=== PATIENT | female | born 1965 | race African-American/Black ===

== ENCOUNTER 2017-08-28 13:07 | Emergency (ER) | payer MEDICARE, OTHER ==
[2017-08-28 13:17] VITALS: BP 136/91; PULSE 90; RESP 18; TEMP 98.1
--- NOTE | 2017-08-28 14:29 | ED ---
General Adult HPI - General Chief complaint: ENT Stated complaint: right ear clogged Time Seen by Provider: 08/28/17 13:26 Source: patient, RN notes reviewed Mode of arrival: ambulatory Limitations: no limitations - History of Present Illness Initial comments: Patient 51-year-old female who presents emergency room today with a chief complaint of cerumen impaction to the right ear. She states she's had this problem multiple times in the past. She states is been bothering her this past week and she has decreased hearing out of the right ear and some discomfort. Patient states she's had to have it irrigated before. She denies any other points her symptoms. Patient denies any recent fever, chills, shortness of breath, chest pain, back pain, abdominal pain, headaches or visual changes, or any other complaints. - Related Data Home Medications Medication Instructions Recorded Confirmed oxyCODONE-APAP 5-325MG [Percocet 1 tab PO Q6HR PRN 09/21/14 08/28/17 5-325] ALPRAZolam [Xanax] 0.25 mg PO BID PRN 08/28/17 08/28/17 Losartan/Hydrochlorothiazide 1 tab PO DAILY 08/28/17 08/28/17 [Losartan-Hctz 100-12.5 mg Tab] hydrOXYzine HCL [Atarax] 25 mg PO BID PRN 08/28/17 08/28/17 Allergies Allergy/AdvReac Type Severity Reaction Status Date / Time hydrocodone bitartrate Allergy Itching Verified 08/28/17 14:03 [From Vicodin] ibuprofen [From Motrin] Allergy Swelling Verified 08/28/17 14:03 Review of Systems ROS Statement: Those systems with pertinent positive or pertinent negative responses have been documented in the HPI. ROS Other: All systems not noted in ROS Statement are negative. Past Medical History Past Medical History: Hyperlipidemia, Hypertension History of Any Multi-Drug Resistant Organisms: None Reported Past Surgical History: Hysterectomy Additional Past Surgical History / Comment(s): partical hysterectomy Past Psychological History: Anxiety Smoking Status: Never smoker Past Alcohol Use History: None Reported Past Drug Use History: None Reported General Exam - General Exam Comments Initial Comments: General: The patient is awake and alert, in no distress, and does not appear acutely ill. Eye: Pupils are equal, round and reactive to light, extra-ocular movements are intact. No nystagmus. There is normal conjunctiva bilaterally. No signs of icterus. Ears, nose, mouth and throat: There are moist mucous membranes and no oral lesions. Patient does have cerumen impaction on the right. Neck: The neck is supple, there is no tenderness or JVD. Musculoskeletal: Normal ROM, no tenderness. Strength 5/5. Sensation intact. Pulses equal bilaterally 2+. Neurological: A&O x 3. CN II-XII intact, There are no obvious motor or sensory deficits. Coordination appears grossly intact. Speech is normal. Skin: Skin is warm and dry and no rashes or lesions are noted. Psychiatric: Cooperative, appropriate mood & affect, normal judgment. Limitations: no limitations Course Vital Signs 08/28/17 13:14 Temperature 98.1 F Pulse Rate 90 Respiratory 18 Rate Blood Pressure 136/91 O2 Sat by Pulse 100 Oximetry Medical Decision Making - Medical Decision Making Patient's year was irrigated by nursing staff. The emergency room. A large chunk of cerumen was removed and patient is feeling much better. TMs clear. Patient will be discharged home. Disposition Clinical Impression: Cerumen impaction Disposition: HOME SELF-CARE Condition: Good Instructions: Cerumen Impaction (ED) Additional Instructions: Please return to emergency room if the symptoms increase or worsen or for any other concerns. Referrals: Ludin Hennessy MD [Primary Care Provider] - 1-2 days Time of Disposition: 14:28
== END 2017-08-28 14:36 | disposition home or self-care (01) ==
LOC: EC 13:07
DX: H61.21 Impacted cerumen, right ear (principal); I10 Essential (primary) hypertension; Z79.899 Other long term (current) drug therapy; Z88.5 Allergy status to narcotic agent; Z88.6 Allergy status to analgesic agent
CPT/HCPCS: 69209; 99282

== ENCOUNTER → 2017-09-10 | Outpatient (CLI) | payer MEDICARE, OTHER ==
[2017-09-10 07:47] LABS: HCT 31.7 % (34.0-46.0); HGB 11.1 gm/dL (11.4-16.0); MCH 30.3 pg (25.0-35.0); MCHC 35.1 g/dL (31.0-37.0); MCV 86.2 fL (80.0-100.0); Mean Platelet Volume 7.1; Platelet Count 452 k/uL (150-450); RBC 3.68 m/uL (3.80-5.40); RDW 12.4 % (11.5-15.5); WBC 3.6 k/uL (3.8-10.6)
[2017-09-10 07:57] LABS: ALT 26 U/L (9-52); AST 21 U/L (14-36); Albumin 4.3 g/dL (3.5-5.0); Alkaline Phosphatase 77 U/L (38-126); Anion Gap 11 mmol/L; Blood Urea Nitrogen 12 mg/dL (7-17); Calcium 10.3 mg/dL (8.4-10.2); Carbon Dioxide 30 mmol/L (22-30); Chloride 102 mmol/L (98-107); Cholesterol 283 mg/dL (<200); Glucose 113 mg/dL (74-99); HDL Cholesterol 43 mg/dL (40-60); LDL Cholesterol,Calculated 218 mg/dL (0-99); Potassium 3.9 mmol/L (3.5-5.1); Sodium 143 mmol/L (137-145); Total Bilirubin 0.7 mg/dL (0.2-1.3); Total Protein 7.9 g/dL (6.3-8.2); Triglycerides 108 mg/dL (<150)
[2017-09-10 08:07] LABS: T4, Free (Free Thyroxine) 0.88 ng/dL (0.78-2.19)
== END | disposition home or self-care (01) ==
LOC: LABWHC1 07:05
PROVIDERS: ATTEND Internal Medicine
DX: Z00.01 Encounter for general adult medical examination with abnormal findings (principal); I11.9 Hypertensive heart disease without heart failure; E78.2 Mixed hyperlipidemia; K21.0 Gastro-esophageal reflux disease with esophagitis
CPT/HCPCS: 36415; 80053; 80061; 84439; 84443; 85027

== ENCOUNTER → 2018-01-01 | Outpatient (CLI) | payer MEDICARE, OTHER ==
--- NOTE | 2018-01-01 14:07 | MM ---
Reason for exam: follow-up at short interval from prior study. Last mammogram was performed 7 months ago. History: Patient is postmenopausal. Family history of breast cancer in maternal aunt at age 30. Physical Findings: Nurse did not find any significant physical abnormalities on exam. MG 3D Diag Mammo W/Cad LT CC and MLO view(s) were taken of the left breast. Prior study comparison: May 20, 2017, bilateral MG 3d screening mammo w/cad. September 14, 2015, right breast MG 3d diag mammo w/cad RT. There are scattered fibroglandular densities. These results were verbally communicated with the patient and result sheet given to the patient on 01/01/18. ASSESSMENT: Benign, BI-RAD 2 RECOMMENDATION: Return to routine screening mammogram schedule for both breasts.
== END | disposition home or self-care (01) ==
LOC: RADMAMWWP 12:51
PROVIDERS: ATTEND Internal Medicine
DX: R92.8 Other abnormal and inconclusive findings on diagnostic imaging of breast (principal)
CPT/HCPCS: 77065; G0279; 77061

== ENCOUNTER → 2018-03-07 | Outpatient (CLI) | payer MEDICARE, OTHER ==
[2018-03-07 09:05] LABS: ALT 36 U/L (9-52); AST 29 U/L (14-36); Anion Gap 9 mmol/L; Blood Urea Nitrogen 12 mg/dL (7-17); Calcium 9.7 mg/dL (8.4-10.2); Carbon Dioxide 32 mmol/L (22-30); Chloride 102 mmol/L (98-107); Cholesterol 277 mg/dL (<200); Creatine Kinase 145 U/L (30-135); Glucose 100 mg/dL (74-99); HDL Cholesterol 45 mg/dL (40-60); LDL Cholesterol,Calculated 201 mg/dL (0-99); Potassium 3.9 mmol/L (3.5-5.1); Sodium 143 mmol/L (137-145); Triglycerides 153 mg/dL (<150)
== END | disposition home or self-care (01) ==
LOC: LABWHC1 06:54
PROVIDERS: ATTEND Internal Medicine
DX: I10 Essential (primary) hypertension (principal); E78.2 Mixed hyperlipidemia
CPT/HCPCS: 36415; 80048; 80061; 82550; 84450; 84460

== ENCOUNTER → 2018-07-25 | Outpatient (CLI) | payer MEDICARE, OTHER ==
--- NOTE | 2018-07-25 12:04 | XR ---
Lumbar spine HISTORY: Back pain 3 views of the lumbar spine Correlation to prior exam June 24, 2012 There is no significant interval change. Multilevel spondylosis is present. Lumbar vertebral bodies s how preserved height and alignment. Bone mineralization is maintained. Sclerosis present in the poste rior elements of the lower lumbar spine. Loss of disc height present L5-S1. There are vascular calcif ications noted incidentally. IMPRESSION: Degenerative disc disease. Facet arthropathy.
--- NOTE | 2018-07-25 12:17 | XR ---
Thoracic spine HISTORY: Back pain 3 views of the thoracic spine There is a spinal curvature convex left centered at the lower thoracic spine. Thoracic vertebral bodi es show preserved height and bone mineralization. There is multilevel spondylosis present. No paraspi nal mass. Disc spaces are maintained with exception of upper levels show some mild loss of height. IMPRESSION: Degenerative disc disease, spinal curvature could be positional. Correlate.
== END | disposition home or self-care (01) ==
LOC: RADXRMAIN 09:35
PROVIDERS: ATTEND Internal Medicine
DX: M51.36 Other intervertebral disc degeneration, lumbar region (principal); M51.34 Other intervertebral disc degeneration, thoracic region; M46.96 Unspecified inflammatory spondylopathy, lumbar region; M19.90 Unspecified osteoarthritis, unspecified site
CPT/HCPCS: 72072; 72100

== ENCOUNTER → 2018-10-16 | Outpatient (CLI) | payer MEDICARE, OTHER ==
--- NOTE | 2018-10-16 11:19 | XR ---
EXAMINATION TYPE: XR chest 2V DATE OF EXAM: 10/16/2018 COMPARISON: 02/24/2013 TECHNIQUE: PA and lateral views submitted. HISTORY: Cough and cold symptoms FINDINGS: The lungs are clear and there is no pneumothorax, pleural effusion, or focal pneumonia. IMPRESSION: 1. No acute process.
--- NOTE | 2018-10-16 11:31 | XR ---
EXAM TYPE: LUMBAR SPINE X RAY SERIES COMPARISON: 07/25/2018 HISTORY: Pain TECHNIQUE: 4 views are submitted. FINDINGS: Alignment is anatomic. The pedicles are intact. The transverse processes are intact. There is no s pondylolysis or spondylolisthesis. Hypertrophic and degenerative changes of the vertebral column. Th ere is loss of disc space L3-S1. There is facet arthropathy. IMPRESSION: 1. Multilevel degenerative disc disease and facet arthropathy.
== END | disposition home or self-care (01) ==
LOC: RADXRMAIN 10:12
PROVIDERS: ATTEND Internal Medicine
DX: M51.36 Other intervertebral disc degeneration, lumbar region (principal); M46.96 Unspecified inflammatory spondylopathy, lumbar region; R05 Cough
CPT/HCPCS: 71046; 72110

== ENCOUNTER → 2019-01-02 | Outpatient (CLI) | payer MEDICARE, OTHER ==
--- NOTE | 2019-01-06 15:21 | MM ---
Reason for exam: screening (asymptomatic). Last mammogram was performed 1 year ago. History: Patient is postmenopausal. Family history of breast cancer in maternal aunt at age 30. MG 3D Screening Mammo W/Cad Bilateral CC and MLO view(s) were taken. Prior study comparison: January 01, 2018, left breast MG 3d diag mammo w/cad LT. May 20, 2017, bilateral MG 3d screening mammo w/cad. There are scattered fibroglandular densities. No significant new finding when compared with prior studies. ASSESSMENT: Negative, BI-RAD 1 RECOMMENDATION: Routine screening mammogram of both breasts in 1 year.
== END | disposition home or self-care (01) ==
LOC: RADMAMWWP 06:58
PROVIDERS: ATTEND Internal Medicine
DX: Z12.31 Encounter for screening mammogram for malignant neoplasm of breast (principal)
CPT/HCPCS: 77063; 77067

== ENCOUNTER → 2022-11-27 | Outpatient (CLI) | payer MEDICARE, OTHER ==
--- NOTE | 2022-11-27 20:23 | US ---
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 Left Kidney: wnl, no lesions seen. No hydronephrosis. Bladder: wnl Bilateral Jets seen: yes IMPRESSION: 1. Mild right-sided pelvicaliectasis could be transient or cardiac represent early hydronephrosis. Co nsider short interval follow-up to reassess. 2. No focal kidney lesion identified on either side by ultrasound.
== END | disposition home or self-care (01) ==
LOC: RADUSWWP 14:48
PROVIDERS: ATTEND Urology
DX: D41.02 Neoplasm of uncertain behavior of left kidney (principal); N28.89 Other specified disorders of kidney and ureter
CPT/HCPCS: 76770

== ENCOUNTER 2023-08-19 17:32 | Inpatient (IN) | payer MEDICARE, OTHER ==
--- NOTE | 2023-08-19 17:45 | ED ---
General Adult HPI - General Source: patient, RN notes reviewed Mode of arrival: wheelchair Limitations: physical limitation <Izabela Mancia - Last Filed: 08/19/23 17:44> <Berry Alvarenga - Last Filed: 08/19/23 20:45> - General Stated complaint: Needs bloodwork Time Seen by Provider: 08/19/23 17:44 - History of Present Illness Initial comments: Quick note: Patient is a 57-year-old female presented to ER with chief complaint of myalgias and tiredness. Patient also was complaining of hematuria denies blood thinner use. She states that been going on for a week. Denies any abdominal pain. (Izabela Mancia) Dictation was produced using [employer] dictation software. please excuse any grammatical, word or spelling errors. Chief Complaint: 57-year-old female presents with 1 to 2 weeks of cough fever myalgias History of Present Illness: Patient is a 57-year-old female she has past medical history of hypertension. Patient presents to the emergency department with daughters. For the last week she has been having bodyaches shortness of breath and cough. Denies any obvious sick contacts. She has past medical history of hypertension. Denies any chest pain. She does complain of some mild dyspnea. The ROS documented in this emergency department record has been reviewed and confirmed by me. Those systems with pertinent positive or negative responses have been documented in the HPI. All other systems are other negative and/or noncontributory. (Berry Alvarenga) - Related Data Home Medications Medication Instructions Recorded Confirmed oxyCODONE-APAP 5-325MG [Percocet 1 tab PO Q6HR PRN 09/21/14 08/28/17 5-325] ALPRAZolam [Xanax] 0.25 mg PO BID PRN 08/28/17 08/28/17 Losartan/Hydrochlorothiazide 1 tab PO DAILY 08/28/17 08/28/17 [Losartan-Hctz 100-12.5 mg Tab] hydrOXYzine HCL [Atarax] 25 mg PO BID PRN 08/28/17 08/28/17 Allergies Allergy/AdvReac Type Severity Reaction Status Date / Time hydrocodone bitartrate Allergy Itching Verified 08/28/17 14:03 [From Vicodin] ibuprofen [From Motrin] Allergy Swelling Verified 08/28/17 14:03 Review of Systems ROS Other: All systems not noted in ROS Statement are negative. <Izabela Mancia - Last Filed: 08/19/23 17:44> ROS Other: All systems not noted in ROS Statement are negative. <Berry Alvarenga - Last Filed: 08/19/23 20:45> ROS Statement: Those systems with pertinent positive or pertinent negative responses have been documented in the HPI. Past Medical History Past Medical History: Hyperlipidemia, Hypertension History of Any Multi-Drug Resistant Organisms: None Reported Past Surgical History: Hysterectomy Additional Past Surgical History / Comment(s): partical hysterectomy Past Psychological History: Anxiety Past Alcohol Use History: None Reported Past Drug Use History: None Reported <Izabela Mancia - Last Filed: 08/19/23 17:44> General Exam <Izabela Mancia - Last Filed: 08/19/23 17:44> <Berry Alvarenga - Last Filed: 08/19/23 20:45> - General Exam Comments Initial Comments: Visual Physical Exam Vital signs reviewed General: Well-appearing, nontoxic, no acute distress. Head: Normocephalic, atraumatic Eyes: PERRLA, EOMI ENT: Airway patent Chest: Nonlabored breathing Skin: No visual rash, normal skin tone Neuro: Alert and oriented 3 Musculoskeletal: No gross abnormalities (Izabela Mancia) PHYSICAL EXAM: General Impression: Alert and oriented x3, not in acute distress malaised HEENT: Normocephalic atraumatic, extra-ocular movements intact, pupils equal and reactive to light bilaterally, mucous membranes moist. Cardiovascular: Heart regular rate and rhythm Chest: Able to complete full sentences, no retractions, no tachypnea, crackles in the right posterior lung base Abdomen: abdomen soft, non-tender, non-distended, no organomegaly Musculoskeletal: Pulses present and equal in all extremities, no peripheral edema Motor: no focal deficits noted Neurological: CN II-XII grossly intact, no focal motor or sensory deficits noted Skin: Intact with no visualized rashes Psych: Normal affect and mood (Berry Alvarenga) Course Vital Signs 08/19/23 17:39 Temperature 102.4 F H Pulse Rate 116 H Respiratory 20 Rate Blood Pressure 146/76 O2 Sat by Pulse 96 Oximetry Procedures - Sepsis Sepsis Focused Exam #1 Time Sepsis Criteria Met: 20:41 Sepsis Focused Exam Date: 08/19/23 Sepsis Focused Exam Time: 20:42 Sepsis Focused Exam Complete: Yes Vital Signs & RN Notes Reviewed: Yes Capillary Refill: < 2 Seconds: Fingers, Toes Peripheral Pulses: Normal: Radial (R), Radial (L), Posterior Tibialis (R), Posterior Tibialis (L), Dorsalis Pedis (R), Dorsalis Pedis (L) Skin Color: Normal for Patient Respiratory Exam: rales Cardiovascular Exam: tachycardia <Berry Alvarenga - Last Filed: 08/19/23 20:45> Medical Decision Making <Izabela Mancia - Last Filed: 08/19/23 17:44> - Lab Data Result diagrams: 08/19/23 18:02 08/19/23 18:02 <Berry Alvarenga - Last Filed: 08/19/23 20:45> - Medical Decision Making I performed the quick note portion of this chart. Electronically signed by Izabela Mancia PA-C (Izabela Mancia) Was pt. sent in by a medical professional or institution (ASHER Marcus, POLYMER MATERIALS CONSULTANT, urgent care, hospital, or snf...) When possible be specific @ -No Did you speak to anyone other than the patient for history (EMS, parent, family, police, friend...)? What history was obtained from this source @ -Daughter at the bedside as discussed above Did you review nursing and triage notes (agree or disagree)? Why? @ -I reviewed and agree with nursing and triage notes Were old charts reviewed (outside hosp., previous admission, EMS record, old EKG, old radiological studies, urgent care reports/EKG's, snf records)? Report findings @ -No old charts were reviewed Differential Diagnosis (chest pain, altered mental status, abdominal pain women, abdominal pain men, vaginal bleeding, musculoskeletal, weakness, fever, dyspnea, syncope, headache, dizziness, GI bleed, back pain, seizure, CVA, palpatations, mental health)? @ -Differential Weakness: Hypoglycemia, shock, sepsis, hyponatremia, anemia, infection, NM, ETOH, adverse medicine reaction, overdose, stroke, this is not meant to be an all-inclusive list. EKG interpreted by me (3pts min.). @ -None done X-rays interpreted by me (1pt min.). @ -Right lobar pneumonia CT interpreted by me (1pt min.). @ -None done U/S interpreted by me (1pt. min.). @ -None done What testing was considered but not performed or refused? (CT, X-rays, U/S, labs)? Why? @ -None What meds were considered but not given or refused? Why? @ -None Did you discuss the management of the patient with other professionals (professionals i.e. DrTeresa, PA, POLYMER MATERIALS CONSULTANT, lab, RT, psych nurse, social media director, retail client solutions consultant, teacher, ict customer support officer, case worker)? Give summary @ -Case discussed with hospitalist for admission Was smoking cessation discussed for >3mins.? @ -No Was critical care preformed (if so, how long)? @ -No Were there social determinants of health that impacted care today? How? (Homelessness, low income, unemployed, alcoholism, drug addiction, transportation, low edu. Level, literacy, decrease access to med. care, skilled nursing, rehab)? @ -No Was there de-escalation of care discussed even if they declined (Discuss DNR or withdrawal of care, Hospice)? DNR status @ -No What co-morbidities impacted this encounter? (DM, HTN, Smoking, COPD, CAD, Cancer, CVA, ARF, Chemo, Hep., AIDS, mental health diagnosis, sleep apnea, mo rbid obesity)? @ -None Was patient admitted / discharged? Hospital course, mention meds given and r oute, prescriptions, significant lab abnormalities, going to OR and other pertinent info. @ -57-year-old female presents emergency department for lethargy weakness fever and constitutional symptoms. Vital signs upon arrival shows temperature 102.4 heart rate of 116. Patient looks malaise at the bedside. Laboratory evaluation shows leukocytosis of 19.6. Sodium 129. Urinalysis negative. Viral testing negative. Chest x-ray shows right lower lobar pneumonia. Patient started antibiotics will be admitted consultation of pulmonology. Undiagnosed new problem with uncertain prognosis? @ -No Drug Therapy requiring intensive monitoring for toxicity (Heparin, Nitro, Insulin, Cardizem)? @ -No Were any procedures done? @ -No Diagnosis/symptom? Acute, or Chronic, or Acute on Chronic? Uncomplicated (without systemic symptoms) or Complicated (systemic symptoms)? @ -Pneumonia Side effects of treatment? @ -No Exacerbation, Progression, or Severe Exacerbation? @ -No Poses a threat to life or bodily function? How? (Chest pain, USA, NM, pneumonia, PE, COPD, DKA, ARF, appy, cholecystitis, CVA, Diverticulitis, Homicidal, Suicidal, threat to staff... and all critical care pts) @ -yes (Berry Alvarenga) - Lab Data Lab Results 08/19/23 08/19/23 08/19/23 Range/Units 17:43 17:50 17:55 WBC (3.8-10.6) k/uL RBC (3.80-5.40) m/uL Hgb (11.4-16.0) gm/dL Hct (34.0-46.0) % MCV (80.0-100.0) fL MCH (25.0-35.0) pg MCHC (31.0-37.0) g/dL RDW (11.5-15.5) % Plt Count (150-450) k/uL MPV Neutrophils % % Lymphocytes % % Monocytes % % Eosinophils % % Basophils % % Neutrophils # (1.3-7.7) k/uL Lymphocytes # (1.0-4.8) k/uL Monocytes # (0-1.0) k/uL Eosinophils # (0-0.7) k/uL Basophils # (0-0.2) k/uL Sodium (137-145) mmol/L Potassium (3.5-5.1) mmol/L Chloride (98-107) mmol/L Carbon Dioxide (22-30) mmol/L Anion Gap mmol/L BUN (7-17) mg/dL Creatinine (0.52-1.04) mg/dL Est GFR (CKD-EPI)AfAm (>60 ml/min/1.73 sqM) Est GFR (CKD-EPI)NonAf (>60 ml/min/1.73 sqM) Glucose (74-99) mg/dL Calcium (8.4-10.2) mg/dL Total Bilirubin (0.2-1.3) mg/dL AST (14-36) U/L ALT (4-34) U/L Alkaline Phosphatase (38-126) U/L Total Protein (6.3-8.2) g/dL Albumin (3.5-5.0) g/dL Urine Color Dark Yellow Urine Appearance Turbid H (Clear) Urine pH 6.0 (5.0-8.0) Ur Specific [place] 1.016 (1.001-1.035) Urine Protein 3+ H (Negative) Urine Glucose (UA) Negative (Negative) Urine Ketones Negative (Negative) Urine Blood Moderate H (Negative) Urine Nitrite Negative (Negative) Urine Bilirubin 2+ H (Negative) Urine Urobilinogen 4.0 (<2.0) mg/dL Ur Leukocyte Esterase Negative (Negative) Urine RBC 9 H (0-5) /hpf Urine WBC 13 H (0-5) /hpf Ur Squamous Epith Cells 16 H (0-4) /hpf Urine Bacteria Occasional H (None) /hpf Urine Mucus Rare H (None) /hpf Influenza Type A (PCR) (Not Detectd) Influenza Type B (PCR) (Not Detectd) RSV (PCR) (Not Detectd) SARS-CoV-2 (PCR) (Not Detectd) Blood Type A Positive Blood Type Confirm A Positive Blood Type Recheck No Previous Record Bld Type Recheck Status CABO Indicated Antibody Screen NEGATIVE Spec Expiration Date 08/22/2023234908/19/23 08/19/23 08/19/23 Range/Units 18:02 18:02 18:02 WBC 19.6 H (3.8-10.6) k/uL RBC 3.73 L (3.80-5.40) m/uL Hgb 11.0 L (11.4-16.0) gm/dL Hct 31.7 L (34.0-46.0) % MCV 84.9 (80.0-100.0) fL MCH 29.6 (25.0-35.0) pg MCHC 34.8 (31.0-37.0) g/dL RDW 13.7 (11.5-15.5) % Plt Count 359 (150-450) k/uL MPV 7.9 Neutrophils % 91 % Lymphocytes % 5 % Monocytes % 4 % Eosinophils % 0 % Basophils % 0 % Neutrophils # 17.8 H (1.3-7.7) k/uL Lymphocytes # 0.9 L (1.0-4.8) k/uL Monocytes # 0.7 (0-1.0) k/uL Eosinophils # 0.0 (0-0.7) k/uL Basophils # 0.0 (0-0.2) k/uL Sodium 129 L (137-145) mmol/L Potassium 3.3 L (3.5-5.1) mmol/L Chloride 94 L (98-107) mmol/L Carbon Dioxide 21 L (22-30) mmol/L Anion Gap 14 mmol/L BUN 21 H (7-17) mg/dL Creatinine 1.79 H (0.52-1.04) mg/dL Est GFR (CKD-EPI)AfAm 36 (>60 ml/min/1.73 sqM) Est GFR (CKD-EPI)NonAf 31 (>60 ml/min/1.73 sqM) Glucose 162 H (74-99) mg/dL Calcium 9.8 (8.4-10.2) mg/dL Total Bilirubin 5.2 H (0.2-1.3) mg/dL AST 538 H (14-36) U/L ALT 400 H (4-34) U/L Alkaline Phosphatase 212 H (38-126) U/L Total Protein 8.8 H (6.3-8.2) g/dL Albumin 4.0 (3.5-5.0) g/dL Urine Color Urine Appearance (Clear) Urine pH (5.0-8.0) Ur Specific [place] (1.001-1.035) Urine Protein (Negative) Urine Glucose (UA) (Negative) Urine Ketones (Negative) Urine Blood (Negative) Urine Nitrite (Negative) Urine Bilirubin (Negative) Urine Urobilinogen (<2.0) mg/dL Ur Leukocyte Esterase (Negative) Urine RBC (0-5) /hpf Urine WBC (0-5) /hpf Ur Squamous Epith Cells (0-4) /hpf Urine Bacteria (None) /hpf Urine Mucus (None) /hpf Influenza Type A (PCR) Not Detected (Not Detectd) Influenza Type B (PCR) Not Detected (Not Detectd) RSV (PCR) Not Detected (Not Detectd) SARS-CoV-2 (PCR) Not Detected (Not Detectd) Blood Type Blood Type Confirm Blood Type Recheck Bld Type Recheck Status Antibody Screen Spec Expiration Date Disposition <Izabela Mancia - Last Filed: 08/19/23 17:44> Decision Time: 20:45 <Berry Alvarenga - Last Filed: 08/19/23 20:45> Clinical Impression: Pneumonia Disposition: ADMITTED IP TO THIS HOSP Condition: Fair Referrals: Tarsha Graf MD [Primary Care Provider] - 1-2 days
[2023-08-19 18:48] LABS: Basophils % (A) 0 %; Eosinophils % (A) 0 %; HCT 31.7 % (34.0-46.0); Lymphocytes # (A) 0.9 k/uL (1.0-4.8); Lymphocytes % (A) 5 %; MCH 29.6 pg (25.0-35.0); MCHC 34.8 g/dL (31.0-37.0); MCV 84.9 fL (80.0-100.0); Mean Platelet Volume 7.9; Monocytes # (A) 0.7 k/uL (0-1.0); Monocytes % (A) 4 %; Neutrophils # (A) 17.8 k/uL (1.3-7.7); Neutrophils % (A) 91 %; Platelet Count 359 k/uL (150-450); RBC 3.73 m/uL (3.80-5.40); RDW 13.7 % (11.5-15.5); WBC 19.6 k/uL (3.8-10.6)
[2023-08-19] MEDS: ACETAMINOPHEN TAB 325 MG TAB PO STA (18:53)
--- NOTE | 2023-08-19 18:59 | XR ---
EXAMINATION TYPE: XR chest 2V DATE OF EXAM: 08/19/2023 6:29 PM CLINICAL INDICATION:Female, 57 years old with history of fever; [facility] COMPARISON: Chest radiographs from 10/16/2018. TECHNIQUE: XR chest 2V Frontal and lateral views of the chest. FINDINGS: Lungs/Pleura: Right lower lobe airspace opacities. No pneumothorax or pleural effusion. No left focal consolidation. Pulmonary vascularity: Unremarkable. Heart/mediastinum: Cardiomediastinal silhouette is unremarkable. Musculoskeletal: No acute osseous pathology. IMPRESSION: Right lower lung airspace opacities correlate for pneumonia.
[2023-08-19 19:05] LABS: ALT 400 U/L (4-34); AST 538 U/L (14-36); African American GFR (CKD) 36 (>60 ml/min/1.73 sqM); Alkaline Phosphatase 212 U/L (38-126); Anion Gap 14 mmol/L; Blood Urea Nitrogen 21 mg/dL (7-17); Calcium 9.8 mg/dL (8.4-10.2); Carbon Dioxide 21 mmol/L (22-30); Chloride 94 mmol/L (98-107); Glucose 162 mg/dL (74-99); Non-African American GFR(CKD) 31 (>60 ml/min/1.73 sqM); Potassium 3.3 mmol/L (3.5-5.1); Sodium 129 mmol/L (137-145); Total Bilirubin 5.2 mg/dL (0.2-1.3); Total Protein 8.8 g/dL (6.3-8.2)
[2023-08-19 19:11] LABS: Appearance,Urine Turbid (Clear); Bacteria,Urine Occasional /hpf; Bilirubin,Urine 2+ (Negative); Blood,Urine Moderate (Negative); Color,Urine Dark Yellow; Glucose,Urine (UA) Negative (Negative); Ketones,Urine Negative (Negative); Leukocyte Esterase,Urine Negative (Negative); Mucus,Urine Rare /hpf; Nitrite,Urine Negative (Negative); Protein,Urine 3+ (Negative); RBC,Urine 9 /hpf (0-5); Specific Gravity,Urine 1.016 (1.001-1.035); Squamous Epithelial Cell,Urine 16 /hpf (0-4); WBC,Urine 13 /hpf (0-5)
[2023-08-19] MEDS ORDERED: PNEUMONIA PROTOCOL UTILIZED 1 EACH MISC PO PRN (20:33)
[2023-08-19] MEDS: SODIUM CHLORIDE 0.9% 2,000 ML IV STA (21:41)
[2023-08-19] MEDS: cefTRIAXone IN SWFI 1,000 MG/10 ML SYRINGE IVP STA (21:42)
[2023-08-19] MEDS: AZITHROMYCIN 500 MG in SODIUM CHLORIDE 0.9% 250 ML IVPB STA (21:45)
--- NOTE | 2023-08-20 03:19 | P.CNPUL ---
History of Present Illness Consult date: 08/20/23 Requesting physician: Berry Alvarenga Reason for consult: pneumonia Chief complaint: Myalgias and generalized fatigue History of present illness: I am seeing this patient in new consultation today 08/20/2023 for community- acquired right lower lobe pneumonia. Patient is a 57-year-old -[place] female with past medical history significant for hypertension and hyperlipidemia. She has never smoked. Patient presented to the emergency room yesterday evening complaining of generalized muscle pain, fatigue, headache, occasional nonproductive cough. Denies shortness of breath. Denies chest pain or hemoptysis. She has had poor appetite. She also reports self-limiting diarrhea accompanied with nausea/vomiting. Denies any abdominal pain. Denies any bloody bowel movements or melena. Denies any hematemesis. This has been ongoing for approximately 1 week. On arrival to the emergency room, she was noted to be febrile with a Tmax of 103.2 F. She is currently in bed, laying on her left lateral side, on room air, in no acute respiratory distress. She is alert and oriented. Appears nontoxic. Chest x-ray on arrival shows a significant right lower lobe consolidation consistent with pneumonia. CBC on arrival demonstrates some leukocytosi, with a WC count of 19.6, hemoglobin 11, hematocrit 31.7, platelets 359. BMP on arrival: Sodium 129, potassium 3.3, chloride 94, serum bicarb 21, BUN 21, creatinine 1.79, glucose 162. LFTs mildly elevated within AST of 538, ALT of 400, ALP of 212. Total bilirubin 5.2. Urinalysis not concerning for UTI. There was some microscopic hematuria and proteinuria.. Patient reports bella hematuria earlier in the week. Denies any other urinary complaints. Negative for influenza, RSV, COVID. Patient has been placed on antibiotics in the form azithromycin and Rocephin. She remains febrile. Vital signs are stable. Review of Systems REVIEW OF SYSTEMS: CONSTITUTIONAL: Denies any recent significant weight loss or weight gain. Admits generalized weakness and myalgias. EYES: Denies change in vision. EARS, NOSE, MOUTH, THROAT: Admits occasional generalized headaches for the last week. denies sore throat. CARDIOVASCULAR: Denies chest pain, palpitations or syncopal episodes. RESPIRATORY: See HPI GASTROINTESTINAL: See HPI GENITOURINARY: Admits hematuria earlier in the week. Denies infections. MUSKULOSKELETAL: Denies pain, denies swelling. INTEGUMENTARY: Denies rash, denies eczema. NEUROLOGICAL: Denies recent memory loss, no recent seizure activity. PSYCHIATRIC: Denies anxiety, denies depression. HEMATOLOGIC/LYMPHATIC: Denies anemia, denies enlarged lymph node Past Medical History Past Medical History: Hyperlipidemia, Hypertension History of Any Multi-Drug Resistant Organisms: None Reported Past Surgical History: Hysterectomy Additional Past Surgical History / Comment(s): partical hysterectomy Past Anesthesia/Blood Transfusion Reactions: No Reported Reaction Past Psychological History: No Psychological Hx Reported, Anxiety Smoking Status: Never smoker Past Alcohol Use History: None Reported Past Drug Use History: None Reported Medications and Allergies Home Medications Medication Instructions Recorded Confirmed Type hydrOXYzine HCL [Atarax] 25 mg PO HS 08/28/17 08/19/23 History Cyanocobalamin [Vitamin B-12] 500 mcg PO DAILY 08/19/23 08/19/23 History Docusate [Colace] 100 mg PO TID PRN 08/19/23 08/19/23 History Ergocalciferol (Vitamin D2) 1,250 mcg PO Q14D 08/19/23 08/19/23 History [Drisdol (50,000 Iu)] Irbesartan 300 mg PO DAILY 08/19/23 08/19/23 History Metoprolol Succinate (ER) [Toprol 50 mg PO DAILY 08/19/23 08/19/23 History Xl] NIFEdipine XL [Procardia XL] 60 mg PO DAILY 08/19/23 08/19/23 History Netarsudil Mesylat/Latanoprost 1 drop BOTH EYES HS 08/19/23 08/19/23 History [Rocklatan 0.02%-0.005% Eye Drp] Omeprazole 40 mg PO DAILY 08/19/23 08/19/23 History Ondansetron Odt [Zofran Odt] 4 mg PO Q8HR PRN 08/19/23 08/19/23 History Rosuvastatin [Crestor] 10 mg PO HS 08/19/23 08/19/23 History Triamcinolone 0.1% Cream [Kenalog 1 applicatio TOPICAL BID 08/19/23 08/19/23 History 0.1% Cream] amLODIPine [Norvasc] 10 mg PO HS 08/19/23 08/19/23 History oxyCODONE-APAP 10-325MG [Percocet 1 tab PO QID PRN 08/19/23 08/19/23 History 10-325 mg] Allergies Allergy/AdvReac Type Severity Reaction Status Date / Time hydrocodone bitartrate Allergy Itching Verified 08/19/23 22:32 [From Vicodin] ibuprofen [From Motrin] Allergy Swelling Verified 08/19/23 22:32 Physical Exam Vitals: Vital Signs Temp Pulse Pulse Resp BP BP BP 08/20/23 02:00 103.2 F H 115 H 16 131/78 08/20/23 01:48 95 16 08/19/23 23:04 99.3 F 95 16 148/53 08/19/23 20:46 99.3 F 96 20 127/82 08/19/23 17:39 102.4 F H 116 H 20 146/76 Pulse Ox 08/20/23 02:00 95 08/20/23 01:48 08/19/23 23:04 98 08/19/23 20:46 98 08/19/23 17:39 96 Intake and Output 08/19/23 08/19/23 08/20/23 14:59 22:59 06:59 Output Total 400 Balance -400 Output: Urine 400 Other: Weight 59.421 kg GENERAL EXAM: Alert, 57-year-old -[place] female, nontoxic appearance, comfortable in no apparent distress. HEAD: Normocephalic and atraumatic EYES: Normal reaction of pupils, equal size. Nonicteric sclera NOSE: Clear with pink turbinates. THROAT: No erythema or exudates. NECK: No masses, no JVD. CHEST: No chest wall deformity. LUNGS: Equal air entry with right basilar inspiratory crackles. On room air. No conversational dyspnea or accessory muscle use.. CVS: S1 and S2 normal with no audible murmur, regular rhythm. No extra heart sounds ABDOMEN: No hepatosplenomegaly, active bowel sounds, no guarding or rigidity. Negative Galvan sign. No rebound tenderness. SPINE: No scoliosis or deformity SKIN: No rashes CENTRAL NERVOUS SYSTEM: No focal deficits, tone is normal in all 4 extremities. EXTREMITIES: There is no peripheral edema, clubbing, or cyanosis. Peripheral pulses are intact. Results - Laboratory Findings CBC and BMP: 08/19/23 18:02 08/19/23 18:02 Abnormal lab findings: Abnormal Labs 08/19/23 08/19/23 08/19/23 17:43 18:02 18:02 WBC 19.6 H RBC 3.73 L Hgb 11.0 L Hct 31.7 L Neutrophils # 17.8 H Lymphocytes # 0.9 L Sodium 129 L Potassium 3.3 L Chloride 94 L Carbon Dioxide 21 L BUN 21 H Creatinine 1.79 H Glucose 162 H Total Bilirubin 5.2 H AST 538 H ALT 400 H Alkaline Phosphatase 212 H Total Protein 8.8 H Urine Appearance Turbid H Urine Protein 3+ H Urine Blood Moderate H Urine Bilirubin 2+ H Urine RBC 9 H Urine WBC 13 H Ur Squamous Epith Cells 16 H Urine Bacteria Occasional H Urine Mucus Rare H - Diagnostic Findings Chest x-ray: image reviewed Assessment and Plan Assessment: Right lower lobe community-acquired pneumonia Leukocytosis, secondary to above Severe dehydration and reduced oral intake Acute kidney injury, secondary to above Hyponatremia, likely secondary to poor oral intake and fluid losses Mild transaminitis Never smoker Plan: Patient's medications, labs, chest x-ray reviewed Currently on room air Covered on a combination of azithromycin and ceftriaxone for community-acquired pneumonia Blood cultures pending. Negative for influenza, RSV, COVID. Add IV maintenance fluids. Add antipyretics. Continue supportive care. We will continue to follow continue to follow I have personally seen and examined the patient, performed the documentation and the assessment and plan as written. Number of minutes spent on the visit:20 Time with Patient: Greater than 30
[2023-08-20] MEDS ORDERED: AZITHROMYCIN 500 MG TAB PO SCH (09:00)
[2023-08-20] MEDS ORDERED: oxyCODONE-APAP 10-325MG 1 EACH TAB PO PRN (09:18)
[2023-08-20] MEDS ORDERED: ONDANSETRON 4 MG/2 ML VIAL IVP PRN (09:20)
[2023-08-20 10:07] LABS: ALT 244 U/L (4-34); AST 347 U/L (14-36); African American GFR (CKD) 33 (>60 ml/min/1.73 sqM); Alkaline Phosphatase 157 U/L (38-126); Anion Gap 13 mmol/L; Blood Urea Nitrogen 23 mg/dL (7-17); Calcium 8.4 mg/dL (8.4-10.2); Carbon Dioxide 16 mmol/L (22-30); Chloride 101 mmol/L (98-107); Glucose 139 mg/dL (74-99); Non-African American GFR(CKD) 28 (>60 ml/min/1.73 sqM); Potassium 3.5 mmol/L (3.5-5.1); Sodium 130 mmol/L (137-145); Total Bilirubin 4.8 mg/dL (0.2-1.3); Total Protein 6.5 g/dL (6.3-8.2)
[2023-08-20 10:10] LABS: Basophils % (A) 0 %; Eosinophils % (A) 0 %; HCT 31.7 % (34.0-46.0); HGB 10.8 gm/dL (11.4-16.0); Lymphocytes # (A) 1.2 k/uL (1.0-4.8); Lymphocytes % (A) 9 %; MCHC 33.9 g/dL (31.0-37.0); MCV 88.6 fL (80.0-100.0); Mean Platelet Volume 10.1; Monocytes # (A) 0.6 k/uL (0-1.0); Monocytes % (A) 5 %; Neutrophils # (A) 11.3 k/uL (1.3-7.7); Neutrophils % (A) 84 %; RBC 3.58 m/uL (3.80-5.40); WBC 13.4 k/uL (3.8-10.6)
--- NOTE | 2023-08-20 10:19 | US ---
EXAMINATION TYPE: US liver DATE OF EXAM: 08/20/2023 COMPARISON: Ultrasound 11/27/2022. CLINICAL INDICATION: Female, 57 years old with history of elevated LFTs, nausea, vomiting; Elevated l iver enzymes TECHNIQUE: Multiple sonographic images of the right upper quadrant are obtained. FINDINGS: EXAM MEASUREMENTS: Liver Length: 16.7 cm Gallbladder Wall: 0.3 cm CBD: 0.3 cm Right Kidney: 12.6 x 4.8 x 5.8 cm Pancreas: Obscured by bowel gas Liver: Echogenic area inferior liver measuring 1.6 x 1.3 x 2.1cm Gallbladder: no evidence of stones Evidence for sonographic Galvan's sign: no CBD: wnl Right Kidney: Mild right-sided pelviectasis which remains unchanged. We note a history of left kidney neoplasm on the patient's 11/27/2022 ultrasound. IMPRESSION: 1. Persistent right-sided pelviectasis, possibly chronic for the patient. If there is any hematuria, given the patient's history of left kidney neoplasm seen on the 11/27/2022 report, correlate as to the need for any further imaging of the ureter/right ureter such as with CT urogram. 2. A 2.1 cm echogenic area within the inferior aspect of the liver. This could represent a hemangioma or focal fat. Recommend 3-6 month follow-up ultrasound to reassess. 3. No gallstones or biliary ductal dilatation.
[2023-08-20] MEDS: METOPROLOL SUCCINATE (ER) 50 MG TAB.ER.24H PO SCH (10:58)
[2023-08-20] MEDS: FAMOTIDINE 20 MG/2 ML VIAL IV SCH (11:00)
[2023-08-20] MEDS: SODIUM CHLORIDE 0.9% 1,000 ML IV SCH (11:00)
[2023-08-20 11:05] LABS: RBC Morphology Normal
[2023-08-20] MEDS: ACETAMINOPHEN TAB 325 MG TAB PO PRN (12:44)
[2023-08-20] MEDS: POTASSIUM CHLORIDE ER 20 MEQ TAB.ER PO STA ×2 (12:48→13:57)
--- NOTE | 2023-08-20 15:25 | US ---
EXAMINATION TYPE: US kidneys/renal and bladder DATE OF EXAM: 08/20/2023 COMPARISON: US 2022 CLINICAL INDICATION: Female, 57 years old with history of CARL; EXAM MEASUREMENTS: Left Kidney: 11.4 x 6.1 x 5.9 cm Right Kidney: imaged on liver ultrasound exam same day not imaged due to same day liver ultrasound. L eft Kidney: no hydronephrosis or masses seen Bladder: wnl Bilateral Jets seen: no There is no evidence for hydronephrosis at this point in time. No nephrolithiasis is seen. No christopher s are identified. The urinary bladder is anechoic. IMPRESSION: 1. No evidence for obstructive uropathy. No renal calculi. 2. See dedicated ultrasound liver for evaluation of the right kidney.
--- NOTE | 2023-08-20 15:56 | P.HPIM ---
History of Present Illness H&P Date: 08/20/23 This is a 57-year-old female with medical history of hypertension, hyperlipidemia, partial hysterectomy, anxiety. Patient presents to the hospital due to ongoing complaints of fatigue muscle weakness and shortness of breath. Denies any abdominal pain. She has been also having nausea vomiting and m ultiple episodes of diarrhea over the last week. Denies any chest pain or discomfort no dizziness or lightheadedness she is not having any neurological deficits no focal weakness. She denies any dysuria urgency or frequency but she does report that she has noted some blood in her urine over the last week. Blood work reveals a white count of 19.6, hemoglobin 11.0, sodium 129, potassium 3.3, BUN of 21, creatinine of 1.79. Patient's bilirubin is elevated at 5.2 as well as an elevation in the AST ALT and alk phos. Urinalysis completed reveals turbid urine with moderate blood 2+ bilirubin occasional bacteria. Viral panel was negative for influenza A, influenza B, RSV and COVID. Chest x-ray completed reveals lower lung airspace opacities correlate for pneumonia. Due to the elevated LFTs a liver and gallbladder ultrasound was completed which reveals persistent right-sided pelviectasis possibly chronic for the patient as it was noted in an ultrasound completed in November of last year. There is mention of a history of left kidney neoplasm although patient denies this. Upon further inve stigation of the medical record it appears that this was a left renal cyst. There is a 2.1 cm echogenic area within the inferior aspect of the liver. This could represent a hemangioma or focal fat. Recommend a 3 to 6-month follow-up ultrasound to reassess. There are no gallstones or biliary ductal dilation. Patient is admitted to the hospital for pneumonia and sepsis she is and started on empiric antibiotic coverage with ceftriaxone and azithromycin and pulmonary service was consulted. Her renal function is worsening with concern for ATN we will rule out any obstructive uropathy a bladder scan is currently ordered as well as a renal ultrasound. REVIEW OF SYSTEMS: CONSTITUTIONAL: Reports fever malaise and fatigue HEENT: No recent visual problems or hearing problems. Denied any sore throat. CARDIOVASCULAR: No chest pain, orthopnea, PND, no palpitations, no syncope. PULMONARY: No shortness of breath, no cough, no hemoptysis. GASTROINTESTINAL: No diarrhea, no nausea, no vomiting, no abdominal pain. NEUROLOGICAL: No headaches, no weakness, no numbness. HEMATOLOGICAL: Denies any bleeding or petechiae. GENITOURINARY: Denies any burning micturition, frequency, or urgency. MUSCULOSKELETAL/RHEUMATOLOGICAL: Denies any joint pain, swelling, or any muscle pain. ENDOCRINE: Denies any polyuria or polydipsia. The rest of the 14-point review of systems is negative. PHYSICAL EXAMINATION: GENERAL: The patient is alert and oriented x3, not in any acute distress. Well developed, well nourished. HEENT: Pupils are round and equally reacting to light. EOMI. No scleral icterus. No conjunctival pallor. Normocephalic, atraumatic. No pharyngeal erythema. No thyromegaly. CARDIOVASCULAR: S1 and S2 present. No murmurs, rubs, or gallops. PULMONARY: Chest is clear to auscultation, no wheezing or crackles. ABDOMEN: Soft, nontender, nondistended, normoactive bowel sounds. No palpable organomegaly. MUSCULOSKELETAL: No joint swelling or deformity. EXTREMITIES: No cyanosis, clubbing, or pedal edema. NEUROLOGICAL: Gross neurological examination did not reveal any focal deficits. SKIN: No rashes. Assessment and plan Pneumonia and sepsis, right lung community-acquired likely gram-negative patient is on Rocephin and azithromycin. Leukocytosis secondary to above Hyponatremia hypovolemic due to nausea vomiting and diarrhea patient is being hydrated with normal saline will repeat labs in the morning Viral gastroenteritis Acute kidney injury secondary to sepsis and acute tubular necrosis Transaminitis hyperbilirubinemia likely due to underlying sepsis gallbladder ultrasound reveals no gallstones underlying infectious process or biliary ductal dilation. Abnormal urinalysis not suggestive of infection likely due to dehydration and elevated bilirubin Hx of hypertension currently low/normal recommending to hold off of blood pressure medications due to sepsis GI prophylaxis DVT prophylaxis Plan Continue empiric antibiotic coverage Blood cultures are pending Procalcitonin level pending Check a renal ultrasound and bladder scan Hold antihypertensives with exception of metoprolol Continue IV fluids normal saline at 75 mls/hr Repeat labs in the AM ID consultation The impression and plan of care has been dictated by Leslie Riggins Nurse Practitioner as directed. Dr. Jeff MD I have performed a history and physical examination and medical decision making of this patient, discussed the same with the dictator, and agree with the dictators assessment and plan as written, documented as a scribe. Based on total visit time, I have performed more than 50% of this visit. Past Medical History Past Medical History: Hyperlipidemia, Hypertension History of Any Multi-Drug Resistant Organisms: None Reported Past Surgical History: Hysterectomy Additional Past Surgical History / Comment(s): partical hysterectomy Past Anesthesia/Blood Transfusion Reactions: No Reported Reaction Past Psychological History: No Psychological Hx Reported, Anxiety Smoking Status: Never smoker Past Alcohol Use History: None Reported Past Drug Use History: None Reported Medications and Allergies Home Medications Medication Instructions Recorded Confirmed Type hydrOXYzine HCL [Atarax] 25 mg PO HS 08/28/17 08/19/23 History Cyanocobalamin [Vitamin B-12] 500 mcg PO DAILY 08/19/23 08/19/23 History Docusate [Colace] 100 mg PO TID PRN 08/19/23 08/19/23 History Ergocalciferol (Vitamin D2) 1,250 mcg PO Q14D 08/19/23 08/19/23 History [Drisdol (50,000 Iu)] Irbesartan 300 mg PO DAILY 08/19/23 08/19/23 History Metoprolol Succinate (ER) [Toprol 50 mg PO DAILY 08/19/23 08/19/23 History Xl] NIFEdipine XL [Procardia XL] 60 mg PO DAILY 08/19/23 08/19/23 History Netarsudil Mesylat/Latanoprost 1 drop BOTH EYES HS 08/19/23 08/19/23 History [Rocklatan 0.02%-0.005% Eye Drp] Omeprazole 40 mg PO DAILY 08/19/23 08/19/23 History Ondansetron Odt [Zofran Odt] 4 mg PO Q8HR PRN 08/19/23 08/19/23 History Rosuvastatin [Crestor] 10 mg PO HS 08/19/23 08/19/23 History Triamcinolone 0.1% Cream [Kenalog 1 applicatio TOPICAL BID 08/19/23 08/19/23 History 0.1% Cream] amLODIPine [Norvasc] 10 mg PO HS 08/19/23 08/19/23 History oxyCODONE-APAP 10-325MG [Percocet 1 tab PO QID PRN 08/19/23 08/19/23 History 10-325 mg] Allergies Allergy/AdvReac Type Severity Reaction Status Date / Time hydrocodone bitartrate Allergy Itching Verified 08/19/23 22:32 [From Vicodin] ibuprofen [From Motrin] Allergy Swelling Verified 08/19/23 22:32 Physical Exam Vitals: Vital Signs Temp Pulse Pulse Resp BP BP BP 08/20/23 07:00 98.6 F 107 H 18 154/85 08/20/23 05:46 110 H 151/89 145/78 08/20/23 04:00 99.4 F 08/20/23 03:00 99.7 F H 08/20/23 02:00 103.2 F H 115 H 16 08/20/23 01:48 95 16 08/19/23 23:04 99.3 F 95 16 08/19/23 20:46 99.3 F 96 20 127/82 08/19/23 17:39 102.4 F H 116 H 20 146/76 BP BP BP Pulse Ox 08/20/23 07:00 94 L 08/20/23 05:46 150/77 08/20/23 04:00 08/20/23 03:00 08/20/23 02:00 131/78 95 08/20/23 01:48 08/19/23 23:04 148/53 98 08/19/23 20:46 98 08/19/23 17:39 96 Intake and Output 08/19/23 08/20/23 08/20/23 22:59 06:59 14:59 Output Total 600 Balance -600 Output: Urine 600 Other: Weight 59.421 kg Results CBC & Chem 7: 08/20/23 09:29 08/20/23 09:29 Labs: Abnormal Lab Results - Last 24 Hours (Table) 08/19/23 08/19/23 08/19/23 Range/Units 17:43 18:02 18:02 WBC 19.6 H (3.8-10.6) k/uL RBC 3.73 L (3.80-5.40) m/uL Hgb 11.0 L (11.4-16.0) gm/dL Hct 31.7 L (34.0-46.0) % Neutrophils # 17.8 H (1.3-7.7) k/uL Lymphocytes # 0.9 L (1.0-4.8) k/uL Sodium 129 L (137-145) mmol/L Potassium 3.3 L (3.5-5.1) mmol/L Chloride 94 L (98-107) mmol/L Carbon Dioxide 21 L (22-30) mmol/L BUN 21 H (7-17) mg/dL Creatinine 1.79 H (0.52-1.04) mg/dL Glucose 162 H (74-99) mg/dL Total Bilirubin 5.2 H (0.2-1.3) mg/dL AST 538 H (14-36) U/L ALT 400 H (4-34) U/L Alkaline Phosphatase 212 H (38-126) U/L Total Protein 8.8 H (6.3-8.2) g/dL Urine Appearance Turbid H (Clear) Urine Protein 3+ H (Negative) Urine Blood Moderate H (Negative) Urine Bilirubin 2+ H (Negative) Urine RBC 9 H (0-5) /hpf Urine WBC 13 H (0-5) /hpf Ur Squamous Epith Cells 16 H (0-4) /hpf Urine Bacteria Occasional H (None) /hpf Urine Mucus Rare H (None) /hpf Thrombosis Risk Factor Assmnt - Choose All That Apply Each Factor Represents 1 point: Age 41-60 years Thrombosis Risk Factor Assessment Total Risk Factor Score: 1 Thrombosis Risk Factor Assessment Level: Low Risk Assessment and Plan Time with Patient: Less than 30
[2023-08-20] MEDS: AZITHROMYCIN 500 MG in SODIUM CHLORIDE 0.9% 250 ML IVPB SCH (17:25)
[2023-08-20] MEDS: ENOXAPARIN 30 MG/0.3 ML SYRINGE SQ SCH (17:30)
[2023-08-20] MEDS ORDERED: amLODIPine 10 MG TAB PO SCH (21:00)
[2023-08-20] MEDS ORDERED: hydrOXYzine HCL 25 MG TAB PO SCH (21:00)
[2023-08-20] MEDS: hydrOXYzine HCL 25 MG TAB PO ONE (21:53)
[2023-08-20] MEDS: oxyCODONE-APAP 10-325MG 1 EACH TAB PO ONE (21:54)
[2023-08-20] MEDS: NETARSUDIL MESYLAT BOTH EYES SCH (22:02)
[2023-08-20] MEDS: LATANOPROST BOTH EYES SCH (22:02)
--- NOTE | 2023-08-20 22:28 | P.CONS ---
History of Present Illness - Reason for Consult Consult date: 08/20/23 - History of Present Illness Patient is a 57-year-old -[place] female past medical history significant for hypertension hyperlipidemia presenting to the hospital for evaluation of generalized bodyaches weakness symptom has been getting worse for the last few days patient also complaining of cough which has been mild to moderate intensity but not bringing up any sputum patient did have some nausea but no vomiting no abdominal pain and did have some diarrhea patient denies high-grade fever at home however on presentation to the hospital patient spike a fever of 102.4 degrees Fahrenheit and have another fever of 101.4 this afternoon patient was tachycardic but not hypotensive mildly hypoxic but no need for odom pplemental oxygen patient did have a white count of 19.6 with a left shift BUN/creatinine has been mildly elevated liver isms are elevated procalcitonin is 3.48 urine has been positive influenza RSV COVID testing was negative blood cultures obtained which are currently pending patient was started on Rocephin and Zithromax infectious disease was consulted for further management of antibiotic therapy, patient did have a chest x-ray right lower lung airspace opacity correlate for pneumonia patient did have a liver ultrasound right-sided pelviectasis likely chronic for the patient Past Medical History Past Medical History: Hyperlipidemia, Hypertension History of Any Multi-Drug Resistant Organisms: None Reported Past Surgical History: Hysterectomy Additional Past Surgical History / Comment(s): partical hysterectomy Past Anesthesia/Blood Transfusion Reactions: No Reported Reaction Past Psychological History: No Psychological Hx Reported, Anxiety Smoking Status: Never smoker Past Alcohol Use History: None Reported Past Drug Use History: None Reported Medications and Allergies Home Medications Medication Instructions Recorded Confirmed Type hydrOXYzine HCL [Atarax] 25 mg PO HS 08/28/17 08/19/23 History Cyanocobalamin [Vitamin B-12] 500 mcg PO DAILY 08/19/23 08/19/23 History Docusate [Colace] 100 mg PO TID PRN 08/19/23 08/19/23 History Ergocalciferol (Vitamin D2) 1,250 mcg PO Q14D 08/19/23 08/19/23 History [Drisdol (50,000 Iu)] Irbesartan 300 mg PO DAILY 08/19/23 08/19/23 History Metoprolol Succinate (ER) [Toprol 50 mg PO DAILY 08/19/23 08/19/23 History Xl] NIFEdipine XL [Procardia XL] 60 mg PO DAILY 08/19/23 08/19/23 History Netarsudil Mesylat/Latanoprost 1 drop BOTH EYES HS 08/19/23 08/19/23 History [Rocklatan 0.02%-0.005% Eye Drp] Omeprazole 40 mg PO DAILY 08/19/23 08/19/23 History Ondansetron Odt [Zofran Odt] 4 mg PO Q8HR PRN 08/19/23 08/19/23 History Rosuvastatin [Crestor] 10 mg PO HS 08/19/23 08/19/23 History Triamcinolone 0.1% Cream [Kenalog 1 applicatio TOPICAL BID 08/19/23 08/19/23 History 0.1% Cream] amLODIPine [Norvasc] 10 mg PO HS 08/19/23 08/19/23 History oxyCODONE-APAP 10-325MG [Percocet 1 tab PO QID PRN 08/19/23 08/19/23 History 10-325 mg] Allergies Allergy/AdvReac Type Severity Reaction Status Date / Time hydrocodone bitartrate Allergy Itching Verified 08/19/23 22:32 [From Vicodin] ibuprofen [From Motrin] Allergy Swelling Verified 08/19/23 22:32 Physical Exam Vitals: Vital Signs Temp Pulse Pulse Resp BP BP BP 08/20/23 15:00 99.0 F 89 18 95/61 08/20/23 13:45 100.6 F H 08/20/23 12:43 101.4 F H 08/20/23 07:00 98.6 F 107 H 18 154/85 08/20/23 05:46 110 H 151/89 145/78 08/20/23 04:00 99.4 F 08/20/23 03:00 99.7 F H 08/20/23 02:00 103.2 F H 115 H 16 08/20/23 01:48 95 16 08/19/23 23:04 99.3 F 95 16 08/19/23 20:46 99.3 F 96 20 127/82 08/19/23 17:39 102.4 F H 116 H 20 146/76 BP BP BP Pulse Ox 03/12/24 15:00 94 L 08/20/23 13:45 08/20/23 12:43 08/20/23 07:00 94 L 08/20/23 05:46 150/77 08/20/23 04:00 08/20/23 03:00 08/20/23 02:00 131/78 95 08/20/23 01:48 08/19/23 23:04 148/53 98 08/19/23 20:46 98 08/19/23 17:39 96 Intake and Output 08/20/23 08/20/23 08/20/23 06:59 14:59 22:59 Output Total 600 Balance -600 Output: Urine 600 Other: # Voids 3 # Bowel Movements 2 Results CBC & Chem 7: 08/20/23 09:29 08/20/23 09:29 Labs: Abnormal Lab Results - Last 24 Hours (Table) 08/19/23 08/19/23 08/19/23 Range/Units 17:43 18:02 18:02 WBC 19.6 H (3.8-10.6) k/uL RBC 3.73 L (3.80-5.40) m/uL Hgb 11.0 L (11.4-16.0) gm/dL Hct 31.7 L (34.0-46.0) % Neutrophils # 17.8 H (1.3-7.7) k/uL Lymphocytes # 0.9 L (1.0-4.8) k/uL Sodium 129 L (137-145) mmol/L Potassium 3.3 L (3.5-5.1) mmol/L Chloride 94 L (98-107) mmol/L Carbon Dioxide 21 L (22-30) mmol/L BUN 21 H (7-17) mg/dL Creatinine 1.79 H (0.52-1.04) mg/dL Glucose 162 H (74-99) mg/dL Total Bilirubin 5.2 H (0.2-1.3) mg/dL AST 538 H (14-36) U/L ALT 400 H (4-34) U/L Alkaline Phosphatase 212 H (38-126) U/L Total Protein 8.8 H (6.3-8.2) g/dL Albumin (3.5-5.0) g/dL Urine Appearance Turbid H (Clear) Urine Protein 3+ H (Negative) Urine Blood Moderate H (Negative) Urine Bilirubin 2+ H (Negative) Urine RBC 9 H (0-5) /hpf Urine WBC 13 H (0-5) /hpf Ur Squamous Epith Cells 16 H (0-4) /hpf Urine Bacteria Occasional H (None) /hpf Urine Mucus Rare H (None) /hpf 08/20/23 08/20/23 Range/Units 09:29 09:29 WBC 13.4 H (3.8-10.6) k/uL RBC 3.58 L (3.80-5.40) m/uL Hgb 10.8 L (11.4-16.0) gm/dL Hct 31.7 L (34.0-46.0) % Neutrophils # 11.3 H (1.3-7.7) k/uL Lymphocytes # (1.0-4.8) k/uL Sodium 130 L (137-145) mmol/L Potassium (3.5-5.1) mmol/L Chloride (98-107) mmol/L Carbon Dioxide 16 L (22-30) mmol/L BUN 23 H (7-17) mg/dL Creatinine 1.93 H (0.52-1.04) mg/dL Glucose 139 H (74-99) mg/dL Total Bilirubin 4.8 H (0.2-1.3) mg/dL AST 347 H (14-36) U/L ALT 244 H (4-34) U/L Alkaline Phosphatase 157 H (38-126) U/L Total Protein (6.3-8.2) g/dL Albumin 3.0 L (3.5-5.0) g/dL Urine Appearance (Clear) Urine Protein (Negative) Urine Blood (Negative) Urine Bilirubin (Negative) Urine RBC (0-5) /hpf Urine WBC (0-5) /hpf Ur Squamous Epith Cells (0-4) /hpf Urine Bacteria (None) /hpf Urine Mucus (None) /hpf Assessment and Plan Plan: 1patient presented hospital with sepsis in this patient who did have a fever tachycardia elevated white count source is right lower lobe pneumonia likely community-acquired 2-we will try to obtain a sputum for Gram stain and culture and check urine for Legionella antigen 3-patient to continue with Rocephin and Zithromax while waiting for the workup to be completed We will follow on clinical condition and cultures to further adjust medication if needed Thank you for this consultation we will follow the patient along with you Dictation was produced using [employer] dictation software. please excuse any grammatical, word or spelling errors. Time with Patient: Greater than 30
[2023-08-21] MEDS: oxyCODONE-APAP 10-325MG 1 EACH TAB PO PRN (03:37)
[2023-08-21 03:46] LABS: Basophils % (A) 0 %; Eosinophils % (A) 0 %; HCT 31.2 % (34.0-46.0); HGB 10.6 gm/dL (11.4-16.0); Lymphocytes # (A) 0.8 k/uL (1.0-4.8); Lymphocytes % (A) 6 %; MCH 29.4 pg (25.0-35.0); MCV 86.6 fL (80.0-100.0); Mean Platelet Volume 8.1; Monocytes # (A) 0.6 k/uL (0-1.0); Monocytes % (A) 4 %; Neutrophils # (A) 12.9 k/uL (1.3-7.7); Neutrophils % (A) 88 %; Platelet Count 311 k/uL (150-450); RBC 3.61 m/uL (3.80-5.40); WBC 14.7 k/uL (3.8-10.6)
[2023-08-21 03:59] LABS: ALT 212 U/L (4-34); AST 231 U/L (14-36); African American GFR (CKD) 33 (>60 ml/min/1.73 sqM); Albumin 2.9 g/dL (3.5-5.0); Alkaline Phosphatase 149 U/L (38-126); Anion Gap 9 mmol/L; Blood Urea Nitrogen 22 mg/dL (7-17); Calcium 8.6 mg/dL (8.4-10.2); Carbon Dioxide 21 mmol/L (22-30); Chloride 103 mmol/L (98-107); Glucose 107 mg/dL (74-99); Magnesium 2.6 mg/dL (1.6-2.3); Non-African American GFR(CKD) 28 (>60 ml/min/1.73 sqM); Potassium 3.2 mmol/L (3.5-5.1); Sodium 133 mmol/L (137-145); Total Protein 6.3 g/dL (6.3-8.2)
[2023-08-21] MEDS: FAMOTIDINE 20 MG/2 ML VIAL IV SCH (04:18)
[2023-08-21] MEDS: FAMOTIDINE 20 MG TAB PO SCH (09:16)
--- NOTE | 2023-08-21 10:06 | P.PN ---
Subjective Progress Note Date: 08/21/23 I am seeing this patient in new consultation today 08/20/2023 for community- acquired right lower lobe pneumonia. Patient is a 57-year-old -[place] female with past medical history significant for hypertension and hyperlipidemia. She has never smoked. Patient presented to the emergency room yesterday evening complaining of generalized muscle pain, fatigue, headache, occasional nonproductive cough. Denies shortness of breath. Denies chest pain or hemoptysis. She has had poor appetite. She also reports self-limiting diarrhea accompanied with nausea/vomiting. Denies any abdominal pain. Denies any bloody bowel movements or melena. Denies any hematemesis. This has been ongoing for approximately 1 week. On arrival to the emergency room, she was noted to be febrile with a Tmax of 103.2 F. She is currently in bed, laying on her left lateral side, on room air, in no acute respiratory distress. She is alert and oriented. Appears nontoxic. Chest x-ray on arrival shows a significant right lower lobe consolidation consistent with pneumonia. CBC on arrival demonstrates some leukocytosi, with a WC count of 19.6, hemoglobin 11, hematocrit 31.7, platelets 359. BMP on arrival: Sodium 129, potassium 3.3, chloride 94, serum bicarb 21, BUN 21, creatinine 1.79, glucose 162. LFTs mildly elevated within AST of 538, ALT of 400, ALP of 212. Total bilirubin 5.2. Urinalysis not concerning for UTI. There was some microscopic hematuria and proteinuria.. Patient reports bella hematuria earlier in the week. Denies any other urinary complaints. Negative for influenza, RSV, COVID. Patient has been placed on antibiotics in the form azithromycin and Rocephin. She remains febrile. Vital signs are stable. The patient is seen today August 21, 2023 in follow-up in the observation unit. She is currently sitting up in bed. Awake and alert in no acute distress. Breathing a bit easier today compared to yesterday. She is maintaining good O2 saturations in the 90s on room air. She is afebrile. Hemodynamically stable. Urine Legionella antigen was positive. Procalcitonin 3.48. White count 14.7. Hemoglobin 10.6. Platelets 311. Sodium 133. Potassium 3.2. Bicarb 21. BUN 22. Creatinine 1.93. Glucose 107. She remains on 0.9 normal saline at 75 MLS per hour. She is continued on ceftriaxone and azithromycin. Lovenox for DVT prophylaxis. Chest x-ray continues to show a right lower lobe infiltrate. Objective - Vital Signs Vital signs: Vital Signs Temp 97.9 F 08/21/23 07:00 Pulse 96 08/21/23 07:00 Resp 16 08/21/23 07:00 BP 130/72 08/21/23 07:00 Pulse Ox 96 08/21/23 07:00 FiO2 Intake & Output 08/20/23 08/21/23 08/21/23 18:59 06:59 18:59 Intake Total 540 240 Balance 540 240 Intake: Oral 540 240 Other: # Voids 3 1 # Bowel Movements 2 - Exam GENERAL EXAM: Alert, very pleasant 57-year-old female, comfortable in no apparent distress. HEAD: Normocephalic and atraumatic EYES: Normal reaction of pupils, equal size. Nonicteric sclera NOSE: Clear with pink turbinates. THROAT: No erythema or exudates. NECK: No masses, no JVD. CHEST: No chest wall deformity. LUNGS: Equal air entry with right basilar inspiratory crackles. On room air. No conversational dyspnea or accessory muscle use. CVS: S1 and S2 normal with no audible murmur, regular rhythm. No extra heart sounds ABDOMEN: No hepatosplenomegaly, active bowel sounds, no guarding or rigidity. Negative Galvan sign. No rebound tenderness. SPINE: No scoliosis or deformity SKIN: No rashes CENTRAL NERVOUS SYSTEM: No focal deficits, tone is normal in all 4 extremities. EXTREMITIES: There is no peripheral edema, clubbing, or cyanosis. Peripheral pulses are intact. - Labs CBC & Chem 7: 08/21/23 03:19 08/21/23 03:19 Labs: Abnormal Lab Results - Last 24 Hours (Table) 08/19/23 08/20/23 08/20/23 Range/Units 17:43 08:25 09:29 WBC 13.4 H (3.8-10.6) k/uL RBC 3.58 L (3.80-5.40) m/uL Hgb 10.8 L (11.4-16.0) gm/dL Hct 31.7 L (34.0-46.0) % Neutrophils # 11.3 H (1.3-7.7) k/uL Lymphocytes # (1.0-4.8) k/uL Sodium (137-145) mmol/L Potassium (3.5-5.1) mmol/L Carbon Dioxide (22-30) mmol/L BUN (7-17) mg/dL Creatinine (0.52-1.04) mg/dL Glucose (74-99) mg/dL Magnesium (1.6-2.3) mg/dL Total Bilirubin (0.2-1.3) mg/dL AST (14-36) U/L ALT (4-34) U/L Alkaline Phosphatase (38-126) U/L Albumin (3.5-5.0) g/dL Procalcitonin 3.48 H (0.02-0.09) ng/mL Urine Legionella Ag Positive A (Negative) 08/20/23 08/21/23 08/21/23 Range/Units 09:29 03:19 03:19 WBC 14.7 H (3.8-10.6) k/uL RBC 3.61 L (3.80-5.40) m/uL Hgb 10.6 L (11.4-16.0) gm/dL Hct 31.2 L (34.0-46.0) % Neutrophils # 12.9 H (1.3-7.7) k/uL Lymphocytes # 0.8 L (1.0-4.8) k/uL Sodium 130 L 133 L (137-145) mmol/L Potassium 3.2 L (3.5-5.1) mmol/L Carbon Dioxide 16 L 21 L (22-30) mmol/L BUN 23 H 22 H (7-17) mg/dL Creatinine 1.93 H 1.93 H (0.52-1.04) mg/dL Glucose 139 H 107 H (74-99) mg/dL Magnesium 2.6 H (1.6-2.3) mg/dL Total Bilirubin 4.8 H 3.0 H (0.2-1.3) mg/dL AST 347 H 231 H (14-36) U/L ALT 244 H 212 H (4-34) U/L Alkaline Phosphatase 157 H 149 H (38-126) U/L Albumin 3.0 L 2.9 L (3.5-5.0) g/dL Procalcitonin (0.02-0.09) ng/mL Urine Legionella Ag (Negative) Microbiology - Last 24 Hours (Table) 08/19/23 21:30 Blood Culture - Preliminary Blood 08/19/23 21:20 Blood Culture - Preliminary Blood 08/19/23 17:43 Urine Culture - Final Urine,Voided Assessment and Plan Assessment: Right lower lobe community-acquired pneumonia, Legionella pneumonia Leukocytosis, secondary to above Severe dehydration and reduced oral intake Acute kidney injury, secondary to above, stable Hyponatremia, likely secondary to poor oral intake and fluid losses, improving Mild transaminitis Never smoker Plan: The patient was seen and evaluated Chest x-ray, labs and medications reviewed Positive for Legionella pneumonia Continue ceftriaxone and azithromycin Lovenox for DVT prophylaxis Continue normal saline at 75 MLS per hour Stable and on room air We will continue to follow I have personally seen and examined the patient, performed the documentation and the assessment and plan as written. Number of minutes spent on the visit: 10.
--- NOTE | 2023-08-21 10:41 | XR ---
EXAMINATION TYPE: XR chest 1V portable DATE OF EXAM: 08/21/2023 8:31 AM CLINICAL INDICATION:Female, 57 years old with history of RLL infiltrate; [facility] COMPARISON: Chest radiographs from 08/19/2023. TECHNIQUE: XR chest 1V portable Frontal view of the chest. FINDINGS: Lungs/Pleura: Similar right basilar airspace consolidation. There is no evidence of pleural effusion, left focal consolidation, or pneumothorax. Pulmonary vascularity: Unremarkable. Heart/mediastinum: Cardiomediastinal silhouette is unremarkable. Musculoskeletal: No acute osseous pathology. IMPRESSION: Similar right basilar airspace consolidation.
[2023-08-21] MEDS: LEVOFLOXACIN 750MG-D5W PMX 750 MG in DEXTROSE/WATER 1 150ML.BAG IVPB SCH (10:44)
[2023-08-21] MEDS: POTASSIUM CHLORIDE ER 20 MEQ TAB.ER PO SCH (12:06)
[2023-08-21] MEDS: hydrOXYzine HCL 25 MG TAB PO ONE (12:06)
--- NOTE | 2023-08-21 14:38 | P.PN ---
Subjective Progress Note Date: 08/21/23 Principal diagnosis: Reason for follow-up is sepsis pneumonia Patient is a 57-year-old -[place] female past medical history significant for hypertension hyperlipidemia presenting to the hospital for evaluation of generalized bodyaches weakness, patient be diagnosed with sepsis secondary to pneumonia and the patient urine for Legionella antigen came back positive. On today's evaluation that is 08/21/2023, Patient did have resolution of her fever and is afebrile patient is currently on room air and denies having any shortness of breath, the patient denies any chest pain, cough is decreased intensity no nausea no vomiting no abdominal pain no diarrhea. Patient white count is 14.7, creatinine is 1.93 liver isms mildly elevated Objective - Vital Signs Vital signs: Vital Signs Temp 97.9 F 08/21/23 07:00 Pulse 96 08/21/23 07:00 Resp 16 08/21/23 07:00 BP 130/72 08/21/23 07:00 Pulse Ox 96 08/21/23 07:00 FiO2 Intake & Output 08/20/23 08/21/23 08/21/23 18:59 06:59 18:59 Intake Total 540 240 Balance 540 240 Intake: Oral 540 240 Other: # Voids 3 1 # Bowel Movements 2 - Exam GENERAL DESCRIPTION: Middle-age female lying in bed in no distress RESPIRATORY SYSTEM: Unlabored breathing , decreased breath sounds at bases HEART: S1 S2 regular rate and rhythm , ABDOMEN: Soft , no tenderness EXTREMITIES: No edema feet - Labs CBC & Chem 7: 08/21/23 03:19 08/21/23 03:19 Labs: Abnormal Lab Results - Last 24 Hours (Table) 08/19/23 08/20/23 08/21/23 Range/Units 17:43 08:25 03:19 WBC 14.7 H (3.8-10.6) k/uL RBC 3.61 L (3.80-5.40) m/uL Hgb 10.6 L (11.4-16.0) gm/dL Hct 31.2 L (34.0-46.0) % Neutrophils # 12.9 H (1.3-7.7) k/uL Lymphocytes # 0.8 L (1.0-4.8) k/uL Sodium (137-145) mmol/L Potassium (3.5-5.1) mmol/L Carbon Dioxide (22-30) mmol/L BUN (7-17) mg/dL Creatinine (0.52-1.04) mg/dL Glucose (74-99) mg/dL Magnesium (1.6-2.3) mg/dL Total Bilirubin (0.2-1.3) mg/dL AST (14-36) U/L ALT (4-34) U/L Alkaline Phosphatase (38-126) U/L Albumin (3.5-5.0) g/dL Procalcitonin 3.48 H (0.02-0.09) ng/mL Urine Legionella Ag Positive A (Negative) 08/21/23 Range/Units 03:19 WBC (3.8-10.6) k/uL RBC (3.80-5.40) m/uL Hgb (11.4-16.0) gm/dL Hct (34.0-46.0) % Neutrophils # (1.3-7.7) k/uL Lymphocytes # (1.0-4.8) k/uL Sodium 133 L (137-145) mmol/L Potassium 3.2 L (3.5-5.1) mmol/L Carbon Dioxide 21 L (22-30) mmol/L BUN 22 H (7-17) mg/dL Creatinine 1.93 H (0.52-1.04) mg/dL Glucose 107 H (74-99) mg/dL Magnesium 2.6 H (1.6-2.3) mg/dL Total Bilirubin 3.0 H (0.2-1.3) mg/dL AST 231 H (14-36) U/L ALT 212 H (4-34) U/L Alkaline Phosphatase 149 H (38-126) U/L Albumin 2.9 L (3.5-5.0) g/dL Procalcitonin (0.02-0.09) ng/mL Urine Legionella Ag (Negative) Microbiology - Last 24 Hours (Table) 08/19/23 21:30 Blood Culture - Preliminary Blood 08/19/23 21:20 Blood Culture - Preliminary Blood 08/19/23 17:43 Urine Culture - Final Urine,Voided Assessment and Plan (1) Legionella pneumonia Current Visit: Yes Status: Acute Code(s): A48.1 - LEGIONNAIRES' DISEASE SNOMED Code(s): 723132360 (2) Pneumonia Current Visit: Yes Status: Acute Code(s): J18.9 - PNEUMONIA, UNSPECIFIED ORGANISM SNOMED Code(s): 474286262 Plan: 1patient presented hospital with sepsis in this patient who did have a fever tachycardia elevated white count source is right lower lobe pneumonia likely community-acquired 2-patient urine for Legionella antigen came back positive 3- Rocephin and Zithromax has been discontinued patient started on Levaquin discussed with [facility] for admitting team and the daughter at the bedside Dictation was produced using [employer] dictation software. please excuse any grammatical, word or spelling errors. Time with Patient: Less than 30
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
[2023-08-21] MEDS: HEPARIN SODIUM,PORCINE 5,000 UNIT/ML 1 ML VIAL SQ SCH (19:44)
[2023-08-21] MEDS: hydrOXYzine HCL 25 MG TAB PO SCH (21:36)
[2023-08-22 08:15] VITALS: BP 125/74; PULSE 93; TEMP 98.1
[2023-08-22 11:26] LABS: HCT 27.5 % (37.2-46.3); HGB 9.7 g/dL (12.0-15.0); MCH 28.4 pg (27.0-32.0); MCHC 35.3 g/dL (32.0-37.0); MCV 80.6 FL (80.0-97.0); Mean Platelet Volume 10.3 FL (9.5-12.2); NRBC Per 100 WBC 0 X 10*3/uL (0.00-0.01); Platelet Count 303 X 10*3/uL (140-440); RBC 3.41 X 10*6/uL (4.10-5.20); RDW 13.8 % (11.5-14.5); WBC 16.26 X 10*3/uL (4.50-10.00)
[2023-08-22 11:52] LABS: ALT 142 U/L (8-44); AST 95 U/L (13-35); Albumin 2.7 g/dL (3.8-4.9); Albumin/Globulin Ratio 0.84 Ratio (1.60-3.17); Alkaline Phosphatase 114 U/L (41-126); Basophils # (A) 0.06 X 10*3/uL (0.00-0.10); Basophils % (A) 0.4 %; Blood Urea Nitrogen 16.8 mg/dL (9.0-27.0); Calcium 9.1 mg/dL (8.7-10.3); Carbon Dioxide 23.3 mmol/L (21.6-31.8); Chloride 101 mmol/L (96-109); Eosinophils # (A) 0.07 X 10*3/uL (0.04-0.35); Eosinophils % (A) 0.4 %; Globulin 3.2 g/dL (1.6-3.3); Glucose 97 mg/dL (70-110); Hypochromasia (M) 2+; Lymphocytes # (A) 1.15 X 10*3/uL (0.90-5.00); Lymphocytes % (A) 7.1 %; Macrocytosis (M) 2+; Magnesium 2.1 mg/dL (1.5-2.4); Monocytes % (A) 6.8 %; Neutrophils # (A) 13.33 X 10*3/uL (1.80-7.70); Neutrophils % (A) 81.9 %; Potassium 4.2 mmol/L (3.5-5.5); Sodium 134 mmol/L (135-145); Target Cells 2+; Total Bilirubin 1.3 mg/dL (0.3-1.2); Total Protein 5.9 g/dL (6.2-8.2)
--- NOTE | 2023-08-22 11:53 | P.PN ---
Subjective Progress Note Date: 08/22/23 I am seeing this patient in new consultation today 08/20/2023 for community- acquired right lower lobe pneumonia. Patient is a 57-year-old -German female with past medical history significant for hypertension and hyperlipidemia. She has never smoked. Patient presented to the emergency room yesterday evening complaining of generalized muscle pain, fatigue, headache, occasional nonproductive cough. Denies shortness of breath. Denies chest pain or hemoptysis. She has had poor appetite. She also reports self-limiting diarrhea accompanied with nausea/vomiting. Denies any abdominal pain. Denies any bloody bowel movements or melena. Denies any hematemesis. This has been ongoing for approximately 1 week. On arrival to the emergency room, she was noted to be febrile with a Tmax of 103.2 F. She is currently in bed, laying on her left lateral side, on room air, in no acute respiratory distress. She is alert and oriented. Appears nontoxic. Chest x-ray on arrival shows a significant right lower lobe consolidation consistent with pneumonia. CBC on arrival demonstrates some leukocytosi, with a WC count of 19.6, hemoglobin 11, hematocrit 31.7, platelets 359. BMP on arrival: Sodium 129, potassium 3.3, chloride 94, serum bicarb 21, BUN 21, creatinine 1.79, glucose 162. LFTs mildly elevated within AST of 538, ALT of 400, ALP of 212. Total bilirubin 5.2. Urinalysis not concerning for UTI. There was some microscopic hematuria and proteinuria.. Patient reports bella hematuria earlier in the week. Denies any other urinary complaints. Negative for influenza, RSV, COVID. Patient has been placed on antibiotics in the form azithromycin and Rocephin. She remains febrile. Vital signs are stable. The patient is seen today August 21, 2023 in follow-up in the observation unit. She is currently sitting up in bed. Awake and alert in no acute distress. Breathing a bit easier today compared to yesterday. She is maintaining good O2 saturations in the 90s on room air. She is afebrile. Hemodynamically stable. Urine Legionella antigen was positive. Procalcitonin 3.48. White count 14.7. Hemoglobin 10.6. Platelets 311. Sodium 133. Potassium 3.2. Bicarb 21. BUN 22. Creatinine 1.93. Glucose 107. She remains on 0.9 normal saline at 75 MLS per hour. She is continued on ceftriaxone and azithromycin. Lovenox for DVT prophylaxis. Chest x-ray continues to show a right lower lobe infiltrate. The patient is seen today August 22, 2023 in follow-up on the regular medical floor. She is resting comfortably in bed. Awake and alert in no acute distress. Breathing easier today compared to yesterday. She is maintaining good O2 saturations in the 90s on room air. She is afebrile. Hemodynamically stable. White count 16.2. Hemoglobin 9.7. She remains on Levaquin. Normal saline at 75 MLS per hour. Heparin for DVT prophylaxis Objective - Vital Signs Vital signs: Vital Signs Temp 98.1 F 08/22/23 07:17 Pulse 93 08/22/23 07:17 Resp 17 08/22/23 07:17 BP 125/74 08/22/23 07:17 Pulse Ox 100 08/22/23 07:17 FiO2 Intake & Output 08/21/23 08/22/23 08/22/23 18:59 06:59 18:59 Intake Total 1415 Balance 1415 Intake: IV 525 Sodium Chloride 0.9% 1, 525 000 ml @ 75 mls/hr IV . [id number] [facility] Rx#:[id number] Intake, IV Titration 150 Amount Levofloxacin 750Mg-D5w 150 Pmx 750 mg In Dextrose/ Water 1 150ml.bag @ 100 mls/hr IVPB Q48H [facility] Rx#: [id number] Oral 740 Other: # Voids 1 4 # Bowel Movements 2 - Exam GENERAL EXAM: Alert, 57-year-old female, on room air, comfortable in no apparent distress. HEAD: Normocephalic and atraumatic EYES: Normal reaction of pupils, equal size. Nonicteric sclera NOSE: Clear with pink turbinates. THROAT: No erythema or exudates. NECK: No masses, no JVD. CHEST: No chest wall deformity. LUNGS: Equal air entry with right basilar inspiratory crackles. No conversational dyspnea or accessory muscle use. CVS: S1 and S2 normal with no audible murmur, regular rhythm. No extra heart sounds ABDOMEN: No hepatosplenomegaly, active bowel sounds, no guarding or rigidity. Negative Galvan sign. No rebound tenderness. SPINE: No scoliosis or deformity SKIN: No rashes CENTRAL NERVOUS SYSTEM: No focal deficits, tone is normal in all 4 extremities. EXTREMITIES: There is no peripheral edema, clubbing, or cyanosis. Peripheral pulses are intact. - Labs CBC & Chem 7: 08/22/23 06:57 08/21/23 03:19 Labs: Abnormal Lab Results - Last 24 Hours (Table) 08/22/23 Range/Units 06:57 WBC 16.26 H (4.50-10.00) X 10*3/uL RBC 3.41 L (4.10-5.20) X 10*6/uL Hgb 9.7 L (12.0-15.0) g/dL Hct 27.5 L (37.2-46.3) % Microbiology - Last 24 Hours (Table) 08/19/23 21:30 Blood Culture - Preliminary Blood 08/19/23 21:20 Blood Culture - Preliminary Blood 08/20/23 03:12 Blood Culture - Preliminary Blood Assessment and Plan Assessment: Right lower lobe community-acquired pneumonia, Legionella pneumonia Leukocytosis, secondary to above Severe dehydration and reduced oral intake Acute kidney injury, secondary to above, stable Hyponatremia, likely secondary to poor oral intake and fluid losses, improving Mild transaminitis Never smoker Plan: The patient was seen and evaluated Labs and medications reviewed Positive for Legionella pneumonia Continue Levaquin Stable and on room air Cleared for discharge from the pulmonary stand I have personally seen and examined the patient, performed the documentation and the assessment and plan as written. Number of minutes spent on the visit: 10.
[2023-08-22 14:03] VITALS: RESP 18
--- NOTE | 2023-08-22 16:01 | P.PN ---
Subjective Progress Note Date: 08/22/23 Principal diagnosis: Reason for follow-up is sepsis pneumonia Patient is a 57-year-old -[place] female past medical history significant for hypertension hyperlipidemia presenting to the hospital for evaluation of generalized bodyaches weakness, patient be diagnosed with sepsis secondary to pneumonia and the patient urine for Legionella antigen came back positive. On today's evaluation that is 08/22/2023, patient has been afebrile, patient is breathing comfortably and is currently on room air, patient denies having any significant cough no chest pain shortness of breath, patient denies nausea vomiting or diarrhea and no abdominal pain, feeling better. Patient white count is 16.26 creatinine is 1.5 Objective - Vital Signs Vital signs: Vital Signs Temp 98.1 F 08/22/23 07:17 Pulse 93 08/22/23 08:00 Resp 18 08/22/23 08:00 BP 125/74 08/22/23 07:17 Pulse Ox 100 08/22/23 07:17 FiO2 Intake & Output 08/21/23 08/22/23 08/22/23 18:59 06:59 18:59 Intake Total 1415 250 Balance 1415 250 Intake: IV 525 Sodium Chloride 0.9% 1, 525 000 ml @ 75 mls/hr IV . [id number] [facility] Rx#:[id number] Intake, IV Titration 150 Amount Levofloxacin 750Mg-D5w 150 Pmx 750 mg In Dextrose/ Water 1 150ml.bag @ 100 mls/hr IVPB Q48H [facility] Rx#: [id number] Oral 740 250 Other: # Voids 1 4 # Bowel Movements 2 - Exam GENERAL DESCRIPTION: Middle-age female lying in bed in no distress RESPIRATORY SYSTEM: Unlabored breathing , decreased breath sounds at bases HEART: S1 S2 regular rate and rhythm , ABDOMEN: Soft , no tenderness EXTREMITIES: No edema feet - Labs CBC & Chem 7: 08/22/23 06:57 08/22/23 06:57 Labs: Abnormal Lab Results - Last 24 Hours (Table) 08/22/23 08/22/23 Range/Units 06:57 06:57 WBC 16.26 H (4.50-10.00) X 10*3/uL RBC 3.41 L (4.10-5.20) X 10*6/uL Hgb 9.7 L (12.0-15.0) g/dL Hct 27.5 L (37.2-46.3) % Immature Gran # 0.55 H (0.00-0.04) X 10*3/uL Neutrophils # 13.33 H (1.80-7.70) X 10*3/uL Monocytes # 1.10 H (0.20-1.00) X 10*3/uL Hypochromasia (manual) 2+ A Macrocytosis (manual) 2+ A Target Cells 2+ A Sodium 134 L (135-145) mmol/L Est GFR (CKD-EPI) 40 L (>=60) BUN/Creatinine Ratio 11.20 L (12.00-20.00) Ratio Total Bilirubin 1.3 H (0.3-1.2) mg/dL AST 95 H (13-35) U/L ALT 142 H (8-44) U/L Total Protein 5.9 L (6.2-8.2) g/dL Albumin 2.7 L (3.8-4.9) g/dL Albumin/Globulin Ratio 0.84 L (1.60-3.17) Ratio Microbiology - Last 24 Hours (Table) 08/20/23 03:12 Blood Culture - Preliminary Blood 08/19/23 21:30 Blood Culture - Preliminary Blood 08/19/23 21:20 Blood Culture - Preliminary Blood Assessment and Plan (1) Legionella pneumonia Current Visit: Yes Status: Acute Code(s): A48.1 - LEGIONNAIRES' DISEASE SNOMED Code(s): 049924701 (2) Pneumonia Current Visit: Yes Status: Acute Code(s): J18.9 - PNEUMONIA, UNSPECIFIED ORGANISM SNOMED Code(s): 359854342 Plan: 1patient presented hospital with sepsis in this patient who did have a fever tachycardia elevated white count source is right lower lobe pneumonia likely community-acquired 2-patient urine for Legionella antigen came back positive 3-patient did have some clinical progress and will continue with the Levaquin however slight worsening of the white count and need to monitor closely Dictation was produced using epacube dictation software. please excuse any grammatical, word or spelling errors. Time with Patient: Less than 30
--- NOTE | 2023-08-23 21:10 | P.DS ---
Providers Date of admission: 08/19/23 20:40 Attending physician: Tyler Díaz Consults: 08/19/23 20:33 Consult Physician Routine Consulting Provider: Noam Velasquez Consult Reason/Comments: pneumonia Do you want consulting provider notified?: Yes 08/20/23 15:52 Consult Physician Routine Consulting Provider: José Luis Page Consult Reason/Comments: pneumonia and sepsis Do you want consulting provider notified?: Yes Primary care physician: Homar Willingham Hospital Course: Final Diagnosis Pneumonia and sepsis, positive for Legionella antibiotics been transition to IV levofloxacin. Hyponatremia and elevated liver enzymes are consistent with this diagnosis. Leukocytosis secondary to above Hyponatremia hypovolemic due to nausea vomiting and diarrhea patient is being hydrated with normal saline will repeat labs in the morning Viral gastroenteritis Acute kidney injury secondary to sepsis and acute tubular necrosis Transaminitis hyperbilirubinemia likely due to underlying sepsis/legionairres Abnormal urinalysis not suggestive of infection likely due to dehydration and elevated bilirubin Hx of hypertension currently low/normal recommending to hold off of blood pressure medications due to sepsis There is a 2.1 cm echogenic area within the inferior aspect of the liver. This could represent a hemangioma or focal fat. Recommend a 3 to 6-month follow-up ultrasound to reassess. Discharge Disposition Patient is stable for discharge home. ID recommending 2 weeks of oral levofloxacin on discharge. Patient has been weaned to room air. Requires close follow up with pulmonary and infectious disease on discharge. Patient given information for local PCPs in the area. Recommend to repeat CBC and CMP in 2 to 3 days. There is a 2.1 cm echogenic area within the inferior aspect of the liver. This could represent a hemangioma or focal fat. Recommend a 3 to 6- month follow-up ultrasound to reassess. Hospital Course This is a 57-year-old female with medical history of hypertension, hyperlip idemia, partial hysterectomy, anxiety. Patient presents to the hospital due to ongoing complaints of fatigue muscle weakness and shortness of breath. Denies any abdominal pain. She has been also having nausea vomiting and multiple episodes of diarrhea over the last week. Denies any chest pain or discomfort no dizziness or lightheadedness she is not having any neurological deficits no focal weakness. She denies any dysuria urgency or frequency but she does report that she has noted some blood in her urine over the last week. Blood work reveals a white count of 19.6, hemoglobin 11.0, sodium 129, potassium 3.3, BUN of 21, creatinine of 1.79. Patient's bilirubin is elevated at 5.2 as well as an elevation in the AST ALT and alk phos. Urinalysis completed reveals turbid urine with moderate blood 2+ bilirubin occasional bacteria. Viral panel was negative for influenza A, influenza B, RSV and COVID. Chest x-ray completed reveals lower lung airspace opacities correlate for pneumonia. Due to the elevated LFTs a liver and gallbladder ultrasound was completed which reveals persistent right-sided pelviectasis possibly chronic for the patient as it was noted in an ultrasound completed in November of last year. There is mention of a history of left kidney neoplasm although patient denies this. Upon further investigation of the medical record it appears that this was a left renal cyst. There is a 2.1 cm echogenic area within the inferior aspect of the liver. This could represent a hemangioma or focal fat. Recommend a 3 to 6-month follow-up ultrasound to reassess. There are no gallstones or biliary ductal dilation. Patient is admitted to the hospital for pneumonia and sepsis she is and started on empiric antibiotic coverage with ceftriaxone and azithromycin and pulmonary s mateo was consulted. Her renal function is worsening with concern for ATN we will rule out any obstructive uropathy a bladder scan is negative for retention as well as a renal ultrasound which does not reveal any hydronephrosis. She was found to be positive for Legionella and discussed with infectious disease she has been transition to IV levofloxacin at 750 mg daily. Patient does report improvement in her symptoms she is more awake alert and no longer appears encephalopathic. Chest x-ray follow-up today shows similar right basilar airspace consolidation. The elevated liver enzymes and hyponatremia are due to legionella. Patient clinically has improved and has been weaned to room air. She is currently up ambulating and wanting to discharge home. Discussed and cleared with ID. She will require close follow up as above. The liver enzymes are improving. Lungs are clear. Please see medication reconciliation for a list of current medications. Thank you for allowing us to participate in the care of this patient. The impression and plan of care has been dictated by Leslie Riggins, Nurse Practitioner as directed. Dr. Jeff MD I have performed a history and physical examination and medical decision making of this patient, discussed the same with the dictator, and agree with the dictators assessment and plan as written, documented as a scribe. Based on total visit time, I have performed more than 50% of this visit. Patient Condition at Discharge: Fair Plan - Discharge Summary New Discharge Prescriptions: New Acetaminophen Tab [Tylenol] 650 mg PO Q4HR PRN tab PRN Reason: Fever And/ Or Pain Levofloxacin [Levaquin] 750 mg PO DAILY 14 Days #14 tab Continue hydrOXYzine HCL [Atarax] 25 mg PO HS Netarsudil Mesylat/Latanoprost [Rocklatan 0.02%-0.005% Eye Drp] 1 drop BOTH EYES HS Omeprazole 40 mg PO DAILY Ondansetron Odt [Zofran ODT] 4 mg PO Q8HR PRN PRN Reason: Nausea Rosuvastatin [Crestor] 10 mg PO HS Triamcinolone 0.1% Cream [Kenalog 0.1% Cream] 1 applicatio TOPICAL BID amLODIPine [Norvasc] 10 mg PO HS Cyanocobalamin [Vitamin B-12] 500 mcg PO DAILY Docusate [Colace] 100 mg PO TID PRN PRN Reason: Constipation Ergocalciferol (Vitamin D2) [Drisdol (50,000 Iu)] 1,250 mcg PO Q14D Metoprolol Succinate (ER) [Toprol XL] 50 mg PO DAILY NIFEdipine XL [Procardia XL] 60 mg PO DAILY oxyCODONE-APAP 10-325MG [Percocet 10-325 mg] 1 tab PO QID PRN PRN Reason: Pain Discontinued Irbesartan 300 mg PO DAILY Discharge Medication List hydrOXYzine HCL [Atarax] 25 mg PO HS 08/28/17 [History] Cyanocobalamin [Vitamin B-12] 500 mcg PO DAILY 08/19/23 [History] Docusate [Colace] 100 mg PO TID PRN 08/19/23 [History] Ergocalciferol (Vitamin D2) [Drisdol (50,000 Iu)] 1,250 mcg PO Q14D 08/19/23 [History] Metoprolol Succinate (ER) [Toprol XL] 50 mg PO DAILY 08/19/23 [History] NIFEdipine XL [Procardia XL] 60 mg PO DAILY 08/19/23 [History] Netarsudil Mesylat/Latanoprost [Rocklatan 0.02%-0.005% Eye Drp] 1 drop BOTH EYES HS 08/19/23 [History] Omeprazole 40 mg PO DAILY 08/19/23 [History] Ondansetron Odt [Zofran ODT] 4 mg PO Q8HR PRN 08/19/23 [History] Rosuvastatin [Crestor] 10 mg PO HS 08/19/23 [History] Triamcinolone 0.1% Cream [Kenalog 0.1% Cream] 1 applicatio TOPICAL BID 08/19/23 [History] amLODIPine [Norvasc] 10 mg PO HS 08/19/23 [History] oxyCODONE-APAP 10-325MG [Percocet 10-325 mg] 1 tab PO QID PRN 08/19/23 [History] Acetaminophen Tab [Tylenol] 650 mg PO Q4HR PRN tab 08/22/23 [Rx] Levofloxacin [Levaquin] 750 mg PO DAILY 14 Days #14 tab 08/22/23 [Rx] Follow up Appointment(s)/Referral(s): Tarsha Graf MD [Primary Care Provider] - 1-2 days Noam Velasquez DO [Doctor of Osteopathic Medicine] - 09/05/23 10:15 am José Luis Page MD [STAFF PHYSICIAN] - 09/02/23 3:45 pm Ambulatory/Diagnostic Orders: Complete Blood Count w/diff [LAB.AMB] Location: None Selected Comprehensive Metabolic Panel [LAB.AMB] Time Frame: 3 Days, Location: None Selected Patient Instructions/Handouts: Pneumonia (DC) Activity/Diet/Wound Care/Special Instructions: Continue on oral levofloxacin for 14 days. Follow up with Dr. Page in 1 to 2 weeks. Establish care with a PCP. Discharge/Stand Alone Forms: Area PCPs Discharge Disposition: HOME SELF-CARE
== END 2023-08-22 16:54 | disposition home or self-care (01) | DRG 871 ==
LOC: EC 17:32 → 1SOBS 20:40 → 6NMEDSUR 08-21 08:01 → 4SSUR 08-21 08:54
PROVIDERS: ADMIT Hospitalist; ATTEND Hospitalist
DX: A41.9 Sepsis, unspecified organism (principal); A48.1 Legionnaires' disease; N17.0 Acute kidney failure with tubular necrosis; R65.21 Severe sepsis with septic shock; E87.1 Hypo-osmolality and hyponatremia; M62.81 Muscle weakness (generalized); E78.5 Hyperlipidemia, unspecified; E86.0 Dehydration; R74.01 Elevation of levels of liver transaminase levels; A08.4 Viral intestinal infection, unspecified; I10 Essential (primary) hypertension; E86.1 Hypovolemia; N28.1 Cyst of kidney, acquired; R31.29 Other microscopic hematuria; Z79.899 Other long term (current) drug therapy; Z90.711 Acquired absence of uterus with remaining cervical stump; Z90.710 Acquired absence of both cervix and uterus; Z88.5 Allergy status to narcotic agent; Z88.6 Allergy status to analgesic agent
CPT/HCPCS: 36415; 71045; 71046; 76705; 76770; 80053; 81001; 83605; 83735; 84145; 85025; 86850; 86900; 86901; 87040; 87086; 87449; 87636; 96374; 99285

== ENCOUNTER → 2024-04-09 | Outpatient (CLI) | payer MEDICARE ==
--- NOTE | 2024-04-09 11:35 | MM ---
Reason for Exam: Screening (asymptomatic). Last mammogram was performed 5 year(s) and 3 month(s) ago. Patient History: Menarche at age 15. First Full-Term at age 16. Hysterectomy at age 48. Postmenopausal. Maternal aunt had breast cancer, age 30. Risk Values: Kristal 5 year model risk: 1.1%. NCI Lifetime model risk: 5.6%. Prior Study Comparison: 05/20/2017 Bilateral Screening Mammogram, [facility]. 01/01/2018 Left Diagnostic Mammogram, [facility]. 01/02/2019 Bilateral Screening Mammogram, [facility]. Tissue Density: The breasts are almost entirely fatty. Findings: Analyzed By CAD. Right breast: There is no suspicious group of microcalcifications or new suspicious mass. Left breast: There is no suspicious group of microcalcifications or new suspicious mass. Overall Assessment: Negative, BI-RAD 1 Management: Screening Mammogram of both breasts in [address] [facility] will attempt to contact patient to return for supplemental views and ultrasound if indicated. Patient should continue monthly self-breast exams. A clinical breast exam by your physician is recommended on an annual basis. This exam should not preclude additional follow-up of suspicious palpable abnormalities. Note on Kristal scores and lifetime risk: 1. A Kristal score greater than 3% is considered moderate risk. If this is the case, consider specialist referral to assess eligibility for a risk reducing agent. 2. If overall lifetime risk for the development of breast cancer is 20% or higher, the patient may qualify for future screening with alternating mammogram and breast MRI. [facility], , 04/09/2024 11:32 AM. Electronically signed and approved by: Noam Quevedo DO
== END | disposition home or self-care (01) ==
LOC: RADMAMWWP 11:03
PROVIDERS: ATTEND Internal Medicine
CPT/HCPCS: 77063; 77067